=== PATIENT | female | born 1960 | race Caucasian/White ===

== ENCOUNTER 2019-01-01 10:15 | Emergency (ER) | payer BC, OTHER ==
--- OUTSIDE RECORDS SUMMARY | 2019-01-01 10:18 | XMS REPORT | Continuity of Care Document ---
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 Problems Problem Status Onset Date Classification Date Comments Source Reported Medications Medication Details Route Status Patient Ordering Order Source Instructions Provider Date Allergies, Adverse Reactions, Alerts Substance Category Reaction Severity Reaction Status Date Comments Source type Reported Immunizations Immunization Date Given Site Status Last Updated Comments Source Results Order Results Value Reference Date Interpretation Comments Source Name Range Vital Signs Vital Sign Value Date Comments Source Encounters Location Location Encounter Encounter Reason Attending ADM DC Status Source Details Type Number For Provider Date Date Visit Outpatient [id number] [facility] [id number] N[facility]SE [facility]03 Active [facility] [id number] [facility] Procedures Procedure Code Date Perfomer Comments Source
--- OUTSIDE RECORDS SUMMARY | 2019-01-01 10:18 | XMS REPORT ---
:1960 [facility] [address] [place] [address] Dr. Robbins [address] [place] [id number] Care Team Providers Name Role Phone Unavailable Unavailable Unavailable Problems This patient has no known problems. Allergies, Adverse Reactions, Alerts This patient has no known allergies or adverse reactions. Medications This patient has no known medications.
--- OUTSIDE RECORDS SUMMARY | 2019-01-01 10:18 | XMS REPORT | Clinical Summary ---
:1960 Author Organization [facility] Address [address] [place] [address] Care Team Providers Name Role Phone Jevon Leal MD Primary Care Provider Allergies Active Allergy Reactions Severity Noted Date Comments Moxifloxacin 03/06/2016 Ciprofloxacin 03/06/2016 Sulfa (Sulfonamide Antibiotics) 03/06/2016 Medications Medication Sig Dispensed Refills Start End Date Status Date GRALISE 600 mg Take 4 tablets 4 Active tablet extended by mouth once 6 release 24 hr daily. azelastine (OPTIVAR) PUT ONE DROP 12 Active 0.05 % ophthalmic INTO EACH EYE 6 solution TWICE A DAY ONETOUCH ULTRA TEST USE THREE TIMES 3 Active strip test strips DAILY, DX: 6 E11.65 ZETIA 10 mg tablet Take 10 mg by 2 Active mouth once 6 daily. HYDROcodone-acetamin Take 1 tablet 0 Active ophen (NORCO) by mouth 2 6 7.5-325 mg per (two) times a tablet day. HUMALOG KWIKPEN 100 INJECT 20 UNITS 3 Active unit/mL insulin pen UNDER THE SKIN 6 3 (THREE) TIMES DAILY BEFORE MEALS. levothyroxine TAKE 1 TAB BY 1 Active (SYNTHROID, MOUTH EVERY 6 LEVOTHROID) 200 MCG MORNING. tablet nitrofurantoin Take 100 mg by 0 Active (MACRODANTIN) 100 MG mouth. 1 capsule capsule following intercourse METHYLCELLULOSE Take 2 tablets 0 Active (CITRUCEL ORAL) by mouth 2 (two) times a day. IRVING ASPIRIN ORAL Take by mouth. 0 Active DOCOSAHEXANOIC Take by mouth. 0 Active ACID/EPA (FISH OIL ORAL) CRANBERRY FRUIT Take 84 mg by 0 Active EXTRACT (CRANBERRY mouth. Helps ORAL) not to pee as often VITAMIN E ACETATE Take by mouth. 0 Active (VITAMIN E ORAL) CINNAMON Take by mouth. 0 Active EUCI-JHYKFTXJ-GSC ORAL propranolol Take 10 mg by 0 Active (INDERAL) 10 MG mouth 3 (three) tablet times a day. ARIPiprazole Take 5 mg by 0 Active (ABILIFY) 5 MG mouth daily. tablet atorvastatin Take 20 mg by 0 Active (LIPITOR) 20 MG mouth daily. tablet Default OP ins venlafaxine XR Take 150 mg by 0 Active (EFFEXOR-XR) 150 MG mouth daily. 24 hr capsule TAKE WITH 75MG TABLET FOR TOTAL OF 225MG DAILY BYDUREON 2 mg/0.65 INJECT 0.65 ML 1 Active mL pen injector UNDER THE SKIN 8 WEEKLY. valACYclovir Take 500 mg by 0 Active (VALTREX) 500 MG mouth daily. tablet amitriptyline Take 25 mg by 3 Active (ELAVIL) 25 MG mouth nightly. 9 tablet hydrOXYzine (ATARAX) TAKE 1 TABLET 180 tablet 2 10/03/19 Active 25 MG (25 MG TOTAL) 9 20 tabletIndications: BY MOUTH EVERY Itching 4 (FOUR) HOURS NEEDED FOR ITCHING. ursodiol (ACTIGALL) TAKE 3 CAPSULES 450 capsule 0 Active 300 mg capsule BY MOUTH EVERY 9 MORNING AND TAKE 2 CAPSULES BY MOUTH EVERY EVENING gemfibrozil (LOPID) TAKE 1 TAB BY 3 09/01/19 Discontinued 600 MG tablet MOUTH 2 (TWO) 6 19 TIMES DAILY BEFORE BREAKFAST AND DINNER. valACYclovir TK 1 T PO QD 0 04/15/20 Discontinued (VALTREX) 1000 MG FOR 5 D 6 18 tablet venlafaxine Take 75 mg by 0 04/15/20 Discontinued (EFFEXOR) 75 MG mouth daily. 18 tablet For depression GLUCOSAMINE Take by mouth. 0 09/01/19 Discontinued SULF/CHONDROITIN A 19 (FLEX ABILITY ORAL) ursodiol (ACTIGALL) 3 capsules po Q 450 capsule 3 06/15/20 300 mg AM and 2 7 18 capsuleIndications: capsules po Q NAFLD (nonalcoholic PM fatty liver disease), Itching hydrOXYzine (ATARAX) Take 1 tablet 180 tablet 2 06/15/20 25 MG (25 mg total) 7 18 tabletIndications: by mouth every Itching, NAFLD 4 (four) hours (nonalcoholic fatty as needed for liver disease) itching. hydrOXYzine (ATARAX) Take 1 tablet 180 tablet 2 09/27/19 Discontinued 25 MG (25 mg total) 8 19 tabletIndications: by mouth every Itching 4 (four) hours as needed for itching. ursodiol (ACTIGALL) TAKE 3 CAPSULES 450 capsule 0 11/18/19 Discontinued 300 mg capsule BY MOUTH EVERY 9 19 MORNING AND TAKE 2 CAPSULES BY MOUTH EVERY EVENING Active Problems Problem Noted Date Hyperlipidemia 10/21/2016 Ascites 10/21/2016 Primary biliary cholangitis 03/06/2016 NAFLD (nonalcoholic fatty liver disease) 03/06/2016 Cirrhosis of liver without ascites 03/06/2016 Type 2 diabetes mellitus without complication 03/06/2016 Elevated transaminase level 03/06/2016 Encounters Date Type Specialty Care Team Description 11/17/2018 Refill Gastroenterology Nilton Londono MD 09/27/2018 Refill Gastroenterology Nilton Londono Itching 09/01/2018 Office Visit Hepatology Nilton Londono, Cirrhosis of liver without ascites, unspecified hepatic cirrhosis type (HCC) (Primary Dx); Primary biliary cholangitis (HCC); Caty Trinidad, NAFLD (nonalcoholic fatty liver disease); [employer] Hyperlipidemia, unspecified hyperlipidemia type 08/23/2018 Refill Gastroenterology Nilton Londono MD 07/28/2018 Telephone Hepatology Patricia Ann LVN 04/15/2018 Office Visit Hepatology Nilton Londono, Cirrhosis of liver without ascites, unspecified hepatic cirrhosis type (Primary Dx); Primary biliary cholangitis; Neva Michael NAFLD (nonalcoholic fatty liver disease); ABBIE Tejeda Hyperlipidemia, unspecified hyperlipidemia type; Other ascites; Elevated transaminase level; Type 2 diabetes mellitus without complication, unspecified 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; Screening for cancer 03/28/2018 Telephone Hepatology Flor Gusman MA after 12/31/2017 Family History Medical History Relation Name Comments Diabetes Father Heart attack Father Lupus Father Depression Mother Diabetes Mother Lupus Mother Depression Sister Relation Name Status Comments Father Mother Sister Social History Tobacco Use Types Packs/Day Years Used Date Never Smoker Smokeless Tobacco: Never Used Alcohol Use Drinks/Week oz/Week Comments Yes Sex Assigned at Date Recorded Not on file Job Start Date Occupation Industry Not on file Not on file Not on file Travel History Travel Start Travel End No recent travel history available. Last Filed Vital Signs Vital Sign Reading Time Taken Blood Pressure 146/75 09/01/2018 1:17 PM [employer] Pulse 76 09/01/2018 1:17 PM [employer] Temperature 36.5 C (97.7 F) 09/01/2018 1:17 PM [employer] Respiratory Rate 18 04/15/2018 2:58 PM CDT Oxygen Saturation 97% 09/01/2018 1:17 PM [employer] Inhaled Oxygen Concentration - - Weight 113 kg (248 lb 6.4 oz) 09/01/2018 1:17 PM [employer] Height 165.1 cm (5' 5") 09/01/2018 1:17 PM [employer] Body Mass Index 41.34 09/01/2018 1:17 PM [employer] Plan of Treatment Date Type Specialty Care Team Description 01/05/2019 Office Visit Hepatology Nilton Londono MD [address] [place] [address] [phone] Health Maintenance Due Date Last Done Comments DIABETIC RETINAL EYE EXAM 1960 DIABETIC FOOT EXAM 01/16/1972 URINE MICROALBUMIN 01/16/1972 BREAST CANCER SCREENING 01/16/2012 COLON CANCER SCREENING 01/16/2012 SHINGLES VACCINES (#1) 01/16/2012 INFLUENZA VACCINE 03/02/2019 Procedures Procedure Name Priority Date/Time Associated Diagnosis Comments PROTHROMBIN TIME WITH Routine 12/27/2018 4:30 Cirrhosis of liver Results for this INR PM CDT without ascites, procedure are in unspecified hepatic the results cirrhosis type (HCC) section. Primary biliary cholangitis (HCC) NAFLD (nonalcoholic fatty liver disease) Hyperlipidemia, unspecified hyperlipidemia type GGT Routine 12/27/2018 4:30 Cirrhosis of liver Results for this PM CDT without ascites, procedure are in unspecified hepatic the results cirrhosis type (HCC) section. Primary biliary cholangitis (HCC) NAFLD (nonalcoholic fatty liver disease) Hyperlipidemia, unspecified hyperlipidemia type COMPREHENSIVE Routine 12/27/2018 4:30 Cirrhosis of liver Results for this METABOLIC PANEL PM CDT without ascites, procedure are in unspecified hepatic the results cirrhosis type (HCC) section. Primary biliary cholangitis (HCC) NAFLD (nonalcoholic fatty liver disease) Hyperlipidemia, unspecified hyperlipidemia type CBC WITH PLATELET AND Routine 12/27/2018 4:30 Cirrhosis of liver Results for this DIFFERENTIAL PM CDT without ascites, procedure are in unspecified hepatic the results cirrhosis type (HCC) section. Primary biliary cholangitis (HCC) NAFLD (nonalcoholic fatty liver disease) Hyperlipidemia, unspecified hyperlipidemia type HEMOGLOBIN A1C Routine 08/10/2018 2:42 Cirrhosis of liver Results for this PM [employer] without ascites, procedure are in unspecified hepatic the results cirrhosis type (HCC) section. Primary biliary cholangitis (HCC) NAFLD (nonalcoholic fatty liver disease) Hyperlipidemia, unspecified hyperlipidemia type Other ascites Elevated transaminase level Type 2 diabetes mellitus without complication, unspecified residential insulin use status PROTHROMBIN TIME WITH Routine 08/10/2018 2:42 Cirrhosis of liver Results for this INR PM [employer] without ascites, procedure are in unspecified hepatic the results cirrhosis type (HCC) section. Primary biliary cholangitis (HCC) NAFLD (nonalcoholic fatty liver disease) Hyperlipidemia, unspecified hyperlipidemia type Other ascites Elevated transaminase level Type 2 diabetes mellitus without complication, unspecified residential insulin use status GGT Routine 08/10/2018 2:42 Cirrhosis of liver Results for this PM [employer] without ascites, procedure are in unspecified hepatic the results cirrhosis type (HCC) section. Primary biliary cholangitis (HCC) NAFLD (nonalcoholic fatty liver disease) Hyperlipidemia, unspecified hyperlipidemia type Other ascites Elevated transaminase level Type 2 diabetes mellitus without complication, unspecified residential insulin use status COMPREHENSIVE Routine 08/10/2018 2:42 Cirrhosis of liver Results for this METABOLIC PANEL PM [employer] without ascites, procedure are in unspecified hepatic the results cirrhosis type (HCC) section. 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 Primary biliary cholangitis (HCC) NAFLD (nonalcoholic fatty liver disease) Hyperlipidemia, unspecified hyperlipidemia type Other ascites Elevated transaminase level Type 2 diabetes mellitus without complication, unspecified 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 ALPHA FETOPROTEIN Routine 08/10/2018 2:42 Cirrhosis of liver Results for this PM [employer] without ascites, procedure are in unspecified hepatic the results cirrhosis type (HCC) section. Primary biliary cholangitis (HCC) NAFLD (nonalcoholic fatty liver disease) Hyperlipidemia, unspecified hyperlipidemia type Other ascites Elevated transaminase level Type 2 diabetes mellitus without complication, unspecified residential insulin use status PERSONAL FACTORS Routine 03/22/2018 4:27 Results for this PM CDT procedure are in the results section. ALBUMIN LEVEL Routine 03/22/2018 4:27 Results for this PM CDT procedure are in the results section. PLATELET COUNT Routine 03/22/2018 4:27 Results for this PM CDT procedure are in the results section. ALT (SGPT) Routine 03/22/2018 4:27 Results for this PM CDT procedure are in the results section. AST (SGOT) Routine 03/22/2018 4:27 Results for this PM CDT procedure are in the results section. GLUCOSE LEVEL Routine 03/22/2018 4:27 Results for this PM CDT procedure are in the results section. INTERPRETATION (REFLEX Routine 03/22/2018 4:27 Results for this [facility]) PM CDT procedure are in the results section. NAFLD FIBROSIS SCORE Routine 03/22/2018 4:27 Results for this (REFLEX) PM CDT procedure are in the results section. IMMUNOGLOBULIN G, A, M Routine 03/22/2018 4:27 Primary biliary Results for this PM CDT cholangitis procedure are in Cirrhosis of liver the results without ascites, section. unspecified hepatic cirrhosis type Type 2 diabetes mellitus without complication, unspecified 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 Overweight GGT Routine 03/22/2018 4:27 Primary biliary Results for this PM CDT cholangitis procedure are in Cirrhosis of liver the results without ascites, section. unspecified hepatic cirrhosis type Type 2 diabetes mellitus without complication, unspecified 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 Overweight PROTHROMBIN TIME WITH Routine 03/22/2018 4:27 Primary biliary Results for this INR PM CDT cholangitis procedure are in Cirrhosis of liver the results without ascites, section. unspecified hepatic cirrhosis type Type 2 diabetes mellitus without complication, unspecified residential insulin use status Overweight COMPREHENSIVE Routine 03/22/2018 4:27 Primary biliary Results for this METABOLIC PANEL PM CDT cholangitis procedure are in Cirrhosis of liver the results without ascites, section. unspecified hepatic cirrhosis type Type 2 diabetes mellitus without complication, unspecified residential insulin use status Overweight CBC WITH PLATELET AND Routine 03/22/2018 4:27 Primary biliary Results for this DIFFERENTIAL PM CDT cholangitis procedure are in Cirrhosis of liver the results without ascites, section. unspecified hepatic cirrhosis type Type 2 diabetes mellitus without complication, unspecified residential insulin use status Overweight after 12/31/2017 Results Prothrombin time with INR (12/27/2018 4:30 PM CDT)Only the most recent of3 resultswithin the time period is included. Pathologist [facility] INR 0.9 [employer] Comment: [place] Reference Range 0.9-1.1 Moderate-intensity Warfarin Therapy 2.0-3.0 Higher-intensity Warfarin Therapy 3.0-4.0 Prothrombin time 9.9 9.0 - 11.5 [facility] Comment: birgit CARTER For more information on this test, go to: http://education.LoopPay/faq/MZO669 Specimen Blood Narrative Performed At FASTING:NO [facility] FASTING: NO Resulting Agency Comment Performing Organization Information: Site ID: [id number] Name: [facility] Address: [address] [place] [phone] Director: Alyse Masterson Performing Organization Address City/State/Zipcode Phone Number [employer] [place] [phone] CBC with platelet and differential (12/27/2018 4:30 PM CDT)Only the most recent of3 resultswithin the time period is included. [facility] WBC 6.1 3.8 - 10.8 [facility] Thousand/uL [place] RBC 4.89 3.80 - 5.10 [facility] Million/uL [place] HGB 14.4 11.7 - 15.5 [facility] g/dL [place] HCT 42.4 35.0 - 45.0 % [employer] [place] MCV 86.7 80.0 - 100.0 fL [facility] [place] MCH 29.4 27.0 - 33.0 pg [facility] [place] MCHC 34.0 32.0 - 36.0 [facility] g/dL [place] RDW 13.1 11.0 - 15.0 % [employer] [place] Platelet count 212 140 - 400 [facility] Thousand/uL [place] MPV 11.5 7.5 - 12.5 fL [facility] [place] Neutrophils, absolute 3,941 1,500 - 7,800 [facility] cells/uL [place] Lymphocytes, absolute 1,464 850 - 3,900 [facility] cells/uL [place] Monocytes, absolute 403 200 - 950 [facility] cells/uL [place] Eosinophils, absolute 214 15 - 500 [facility] cells/uL [place] Basophils, absolute 79 0 - 200 [facility] cells/uL [place] Neutrophils 64.6 % [facility] [place] Lymphocytes 24.0 % [facility] Monocytes 6.6 % [facility] Eosinophils 3.5 % [facility] [place] Basophils + RC 1.3 % [facility] [place] Specimen Blood Narrative Performed At FASTING:NO [facility] FASTING: NO Resulting Agency Comment Performing Organization Information: Site ID: [id number] Name: [facility] Address: [address] [place] [phone] Director: Alyse Masterson Performing Organization Address City/State/[facility] Hospital[facility] Phone Number [facility] [place] [address] GGT (12/27/2018 4:30 PM CDT)Only the most recent of3 resultswithin the time period is included. GGT 118 (H) 3 - 70 U/L [employer] [place] Specimen Blood Narrative Performed At FASTING:NO [facility] FASTING: NO Resulting Agency Comment Performing Organization Information: Site ID: [email or web address] Name: [facility] Address: [address] [place] [phone] Director: Alyse Masterson Performing Organization Address City/[facility] Phone Number [employer] [place] [address] Comprehensive metabolic panel (12/27/2018 4:30 PM CDT)Only the most recent of3 resultswithin the time period is included. Glucose 143 (H) 65 - 139 [facility] Comment: mg/dL [place] Non-fasting reference interval BUN, whole blood 12 7 - 25 mg/dL [employer] [place] Creatinine 0.68 0.50 - 1.05 [facility] Comment: mg/dL [place] For patients >49 years of age, the reference limit for Creatinine is approximately 13% higher for people identified as -Nigerian. EGFR Non-Afr. 98 > OR=60 [facility] Nigerian mL/min/1.73m [place] 2 EGFR 113 > OR=60 [facility] [place] mL/min/1.73m [place] 2 BUN/creatinine NOT APPLICABLE 6 - 22 [facility] ratio (calc) [place] Sodium 138 135 - 146 [facility] mmol/L [place] Potassium 4.6 3.5 - 5.3 [facility] mmol/L [place] Chloride 102 98 - 110 [facility] mmol/L [place] CO2 27 20 - 32 [facility] mmol/L [place] Calcium 9.8 8.6 - 10.4 [facility] mg/dL [place] Protein 7.3 6.1 - 8.1 [facility] g/dL [place] Albumin, S 4.4 3.6 - 5.1 [facility] g/dL [place] Globulin, total 2.9 1.9 - 3.7 [facility] g/dL (calc) [place] Albumin/globulin 1.5 1.0 - 2.5 [facility] ratio (calc) [place] Total bilirubin 0.5 0.2 - 1.2 [facility] mg/dL [place] Alkaline 174 (H) 33 - 130 U/L [facility] phosphatase [place] AST 21 10 - 35 U/L [facility] [place] ALT 23 6 - 29 U/L [facility] [place] Specimen Blood Narrative Performed At FASTING:NO [facility] FASTING: NO Resulting Agency Comment Performing Organization Information: Site ID: [id number] Name: [facility] Address: [address] [place] [phone] Director: Alyse Masterson Performing Organization Address City/[facility]/Zipcode Phone Number [employer] [address] [address] Alpha fetoprotein (08/10/2018 2:42 PM [employer]) Alpha fetoprotein 2.7 ng/mL [facility] Comment: DIAGNOSTICS-IR Reference Range: <6.1 NG II The use of AFP as a tumor marker in females is not recommended. This test was performed using the Jabari Brockton chemiluminescent method. Values obtained from different assay methods cannot be used interchangeably. AFP levels, regardless of value, should not be interpreted as absolute evidence of the presence or absence of disease. Specimen Blood Narrative Performed At FASTING:YES [facility] FASTING: YES Resulting Agency Comment Performing Organization Information: Site ID: [id number] Name: [facility] Address: [address] [place] [phone] Director: Dr. Javi Zimmerman Performing Organization Address City/[facility]/Zipcode Phone Number [facility] [employer] [address] Hemoglobin A1c (08/10/2018 2:42 PM [employer]) Hemoglobin A1C 7.0 (H) <5.7 % of [facility] Comment: total Hgb [place] For someone without known diabetes, a hemoglobin A1c value of 6.5% or greater indicates that they may have diabetes and this should be confirmed with a follow-up test. For someone with known diabetes, a value <7% indicates that their diabetes is well controlled and a value greater than or equal to 7% indicates suboptimal control. A1c targets should be individualized based on duration of diabetes, age, comorbid conditions, and other considerations. Currently, no consensus exists regarding use of hemoglobin A1c for diagnosis of diabetes for children. Specimen Blood Narrative Performed At FASTING:YES [employer] FASTING: YES Resulting Agency Comment Performing Organization Information: Site ID: [id number] Name: [facility] Address: [address] [place] [phone] Director: Alyse Masterson Performing Organization Address City/[facility] Phone Number [facility] [employer] [place] [phone] PERSONAL FACTORS (03/22/2018 4:27 PM CDT) Height feet 5 ft [employer] [place] Height inches NOT GIVEN in [employer] [facility] Weight 242 lbs [employer] [place] Calculated BMI 47.3 [employer] [place] Diabetic YES [facility] [employer] [place] Specimen Narrative Performed At FASTING:YES [employer] FASTING: YES Resulting Agency Comment Performing Organization Information: Site ID: [id number] Name: [facility] Address: [address] [place] [phone] Director: Alyse Masterson Performing Organization Address [facility] Phone Number [facility] [place] [address] INTERPRETATION (03/22/2018 4:27 PM CDT) Interpretation [facility] [employer] Comment: [place] NAFLD Fibrosis Score greater than 0.676: Presence of significant fibrosis (90% certainty). Reference: Hans P, Amy ARANGO, Karen G, Maria Elena E, Nando J, Catrachito GC, Hayden F, Saksentaylor S, Anuj DA, et al. The NAFLD fibrosis score: a noninvasive system that identifies liver fibrosis in patients with NAFLD. HEPATOLOGY 2007;45:846-854. If fasting conditions were not met, use caution when interpreting the glucose test result and the NAFLD Fibrosis Score. Specimen Narrative Performed At FASTING:YES [facility] FASTING: YES Resulting Agency Comment Performing Organization Information: Site ID: [id number] Name: [facility] Address: [address] [place] [address] Director: Alyse Masterson Performing Organization Address [facility] Phone Number [employer] [place] [address] NAFLD FIBROSIS SCORE (REFLEX) (03/22/2018 4:27 PM CDT) NAFLD fibrosis score 1.291 [facility] [employer] [place] Specimen Narrative Performed At FASTING:YES [facility] FASTING: YES Resulting Agency Comment Performing Organization Information: Site ID: [id number] Name: [facility] Address: [address] [place], [place] [id number] Director: Alyse Masterson Performing Organization Address [facility] Phone Number [employer] [place] [address] Platelet count (03/22/2018 4:27 PM CDT) Platelet count 216 140 - 400 [facility] [employer] Thousand/uL CARTER Specimen Narrative Performed At FASTING:YES [facility] FASTING: YES Resulting Agency Comment Performing Organization Information: Site ID: [id number] Name: [facility] Address: [address] [place] [address] Director: Alyse Masterson Performing Organization Address [facility] Phone Number [employer] [place] [address] Immunoglobulin G, A, M (03/22/2018 4:27 PM CDT) IgA 239 81 - 463 mg/dL [facility] IgG 974 694 - 1,618 mg/dL [employer] [place] IgM 144 48 - 271 mg/dL [employer] [place] Specimen Blood Narrative Performed At FASTING:YES [facility] FASTING: YES Resulting Agency Comment Performing Organization Information: Site ID: [id number] Name: [facility] Address: [address] [place], [place] [phone] Director: Alyse Masterson Performing Organization Address [facility] Phone Number [employer] [place] [phone] ALT (SGPT) (03/22/2018 4:27 PM CDT) [facility] ALT 25 6 - 29 U/L [employer] [place] Specimen Narrative Performed At FASTING:YES [facility]ST FASTING: YES Resulting Agency Comment Performing Organization Information: Site ID: [id number] Name: [facility] Address: [address] [place] [address] Director: Alyse Masterson Performing Organization Address [facility] Phone Number [employer] [place] [address] AST (SGOT) (03/22/2018 4:27 PM CDT) [facility] AST 21 10 - 35 U/L [employer] [place] Specimen Narrative Performed At FASTING:YES [facility]ST FASTING: YES Resulting Agency Comment Performing Organization Information: Site ID: [facility] Name: [facility] Address: [address] [place] [phone] Director: Alyse Masterson Performing Organization Address [facility] Number [employer] [place] [address] Glucose level (03/22/2018 4:27 PM CDT) [facility] Glucose 105 (H) 65 - 99 mg/dL [employer] [facility] Comment: [place] Fasting reference interval For someone without known diabetes, a glucose value between 100 and 125 mg/dL is consistent with prediabetes and should be confirmed with a follow-up test. Specimen Narrative Performed At FASTING:YES [facility]ST FASTING: YES Resulting Agency Comment Performing Organization Information: Site ID: [id number] Name: [facility] Address: [address] [place] [phone] Director: Alyse Masterson Performing Organization Address [facility] Phone Number [employer] [place] [address] Albumin level (03/22/2018 4:27 PM CDT) [facility] Albumin, S 4.1 3.6 - 5.1 g/dL [employer] [place] Specimen Narrative Performed At FASTING:YES [facility]ST FASTING: YES Resulting Agency Comment Performing Organization Information: Site ID: [id number] Name: [facility] Address: [address] [place] [address] Director: Alyse Masterson Performing Organization Address City/State/Zipcode Phone Number NEIL HOLGUIN [place] [address] [place] [address] after 12/31/2017 Advance Directives Patient has advance care planning documents on file. For more information, please contact:Santy Shahid[address] [place] [address]
[2019-01-01 11:45] LABS: Urine Bacteria 20-50 /HPF (<20); Urine Culture Reflex Order NOT NEEDED; Urine RBC <5 /HPF (NONE SEEN)
[2019-01-01 11:48] LABS: Urine Blood NEGATIVE (NEG); Urine Glucose NEGATIVE (NEG); Urine Protein TRACE (NEG); Urine Specific Gravity >1.030 (1.005-1.030)
--- NOTE | 2019-01-01 12:22 | ER ---
Nurse's Notes [facility] Name: Kylee Sandhu Age: 58 yrs Sex: Female : 1960 Arrival Date: 01/01/2019 Time: 10:17 Bed 8 Private MD: Jorge Luis Wall Diagnosis: Low back pain;Cystitis;Type 1 diabetes mellitus Presentation: 01/01 10:25 Presenting complaint: Patient states: R LUMBAR PAIN WITH DYSURIA x5 DAYS. Transition of bp care: patient was not received from another setting of care. Onset of symptoms is unknown. Risk Assessment: Do you want to hurt yourself or someone else? Patient reports no desire to harm self or others. Initial Sepsis Screen: Does the patient meet any 2 criteria? No. Patient's initial sepsis screen is negative. Does the patient have a suspected source of infection? No. Patient's initial sepsis screen is negative. Care prior to arrival: None. 10:25 Method Of Arrival: Ambulatory bp 10:25 Acuity: HELLEN 3 bp Historical: - Allergies: 10:29 AVALOX; bp 10:29 Cipro; bp 10:29 Sulfa (Sulfonamide Antibiotics); bp - PMHx: 10:29 Arthritis; Cirrhosis; Diabetes - IDDM; Hernia; HERPES; Hyperlipidemia; Hypothyroidism; bp PRIMARY BILIARY CIRRHOSIS; Sleep Apnea; - Immunization history:: Adult Immunizations up to date. - Social history:: Smoking status: unknown. - Ebola Screening: : No symptoms or risks identified at this time. - Family history:: not pertinent. Screenin:15 Abuse screen: Denies threats or abuse. Denies injuries from another. Nutritional sv screening: No deficits noted. Tuberculosis screening: No symptoms or risk factors identified. Fall Risk None identified. Assessment: 11:15 General: Appears in no apparent distress. uncomfortable, obese, well developed, sv Behavior is calm, cooperative, appropriate for age. Pain: Complains of pain in right low back Pain currently is 5 out of 10 on a pain scale. Pain began 5 days ago. Neuro: Level of Consciousness is awake, alert, obeys commands, Oriented to person, place, time, situation, Moves all extremities. Full function. Respiratory: Respiratory effort is even, unlabored, Respiratory pattern is regular, symmetrical. : Reports burning with urination, pain in right in lower back with urination, urinary frequency. Derm: Skin is pink, warm \T\ dry. 12:32 Reassessment: Patient appears in no apparent distress at this time. No changes from sv previously documented assessment. Patient and/or family updated on plan of care and expected duration. Pain level reassessed. Patient is alert, oriented x 3, equal unlabored respirations, skin warm/dry/pink. Vital Signs: 10:25 BP 139 / 79; Pulse 72; Resp 17; Temp 98; Pulse Ox 95% ; Weight 113.4 kg; Height 5 ft. 0 bp in. (152.40 cm); 12:00 BP 119 / 69; Pulse 67; Resp 18; Pulse Ox 97% ; sv 10:25 Body Mass Index 48.82 (113.40 kg, 152.40 cm) bp ED Course: 10:17 Patient arrived in ED. ag5 10:18 Jorge Luis Wall DO is Private Physician. ag5 10:25 Triage completed. bp 10:26 Arm band placed on. bp 10:27 Indra Marshall MD is Attending Physician. anna 10:47 Urine collected: clean catch specimen, clear. kj1 11:00 Lumbar Spine (3 Views) XRAY In Process Unspecified. EDMS 11:15 Patient has correct armband on for positive identification. Placed in gown. Bed in low sv position. Adult w/ patient. 11:18 Beata Geiger, RN is Primary Nurse. sv 12:21 Jorge Luis Wall DO is Referral Physician. anna 12:32 No provider procedures requiring assistance completed. Patient did not have IV access sv during this emergency room visit. Administered Medications: 12:31 Drug: [place] 10 mg-325 mg 1 tabs Route: PO; sv 12:32 Follow up: Response: Medication administered at discharge. sv 12:32 Drug: Augmentin 875 mg Route: PO; sv 12:32 Follow up: Response: Medication administered at discharge. sv Outcome: 12:21 Discharge ordered by . anna 12:32 Patient left the ED. sv 12:32 Discharged to home ambulatory, with family. sv 12:32 Condition: stable 12:32 Discharge instructions given to patient, Instructed on discharge instructions, follow up and referral plans. medication usage, Demonstrated understanding of instructions, follow-up care, medications, Prescriptions given X 3. Addendum: 01/04/2019 08:21 Addendum: Culture Results: Positive urine culture. Bacteria is resistant to, has i w intermediate sensitivity, or is not tested against prescribed antibiotics. Report given to RHONDA for further evaluation and then to local coordinator for follow up with patient. 08:49 Addendum: Culture Results: No further action required. Bacteria sensitive to prescribed i w antibiotic. Signatures: Dispatcher [employer] Beata Vogel RN RN sv Anderson, Corey, MD MD cha Williams, Irene, RN RN iw Peltier, Brian, RN RN bp [place], Ajare [facility] Debbie Jacinto kj1
--- NOTE | 2019-01-01 12:22 | RAD REPORT ---
EXAM DESCRIPTION: RAD - Lumbar Spine 3 Views - 01/01/2019 11:02 am CLINICAL HISTORY: Back pain FINDINGS: The alignment of the lumbar spine is satisfactory. No fracture or dislocation is seen. Osteoporosis Minimal spondylosis involves the lumbar spine
--- NOTE | 2019-01-01 12:22 | EDPHYS ---
Physician Documentation [facility] Name: Kylee Sandhu Age: 58 yrs Sex: Female : 1960 Arrival Date: 01/01/2019 Time: 10:17 Bed 8 Private MD: Jorge Luis Wall ED Physician Indra Marshall HPI: 01/01 12:11 This 58 yrs old Female presents to ER via Ambulatory with complaints of Low anna Back Pain. 12:11 The patient presents with pain that is acute, with no known mechanism of injury. The anna symptoms are located in the low back, L4 and L5. The pain does not radiate. The problem was sustained from unknown cause. Onset: The symptoms/episode began/occurred 2 day(s) ago. Modifying factors: The patient symptoms are alleviated by nothing, the patient symptoms are aggravated by any movement, bending. Associated signs and symptoms: Pertinent positives: dysuria. Historical: - Allergies: 10:29 AVALOX; bp 10:29 Cipro; bp 10:29 Sulfa (Sulfonamide Antibiotics); bp - PMHx: 10:29 Arthritis; Cirrhosis; Diabetes - IDDM; Hernia; HERPES; Hyperlipidemia; Hypothyroidism; bp PRIMARY BILIARY CIRRHOSIS; Sleep Apnea; - Immunization history:: Adult Immunizations up to date. - Social history:: Smoking status: unknown. - Ebola Screening: : No symptoms or risks identified at this time. - Family history:: not pertinent. ROS: 12:11 Constitutional: Negative for fever, chills, and weight loss, Eyes: Negative for injury, anna pain, redness, and discharge, ENT: Negative for injury, pain, and discharge, Neck: Negative for injury, pain, and swelling, Cardiovascular: Negative for chest pain, palpitations, and edema, Respiratory: Negative for shortness of breath, cough, wheezing, and pleuritic chest pain, Abdomen/GI: Negative for abdominal pain, nausea, vomiting, diarrhea, and constipation, MS/Extremity: Negative for injury and deformity, Skin: Negative for injury, rash, and discoloration, Neuro: Negative for headache, weakness, numbness, tingling, and seizure, Psych: Negative for depression, anxiety, suicide ideation, homicidal ideation, and hallucinations, Allergy/Immunology: Negative for hives, rash, and allergies, Endocrine: Negative for neck swelling, polydipsia, polyuria, polyphagia, and marked weight changes, Hematologic/Lymphatic: Negative for swollen nodes, abnormal bleeding, and unusual bruising. 12:11 Back: Positive for decreased range of motion, pain at rest, pain with movement. 12:11 : Positive for urinary symptoms, urinary frequency, small amounts, burning with urination, difficulty urinating. Exam: 12:11 Constitutional: This is a well developed, well nourished patient who is awake, alert, anna and in no acute distress. Head/Face: Normocephalic, atraumatic. Eyes: Pupils equal round and reactive to light, extra-ocular motions intact. Lids and lashes normal. Conjunctiva and sclera are non-icteric and not injected. Cornea within normal limits. Periorbital areas with no swelling, redness, or edema. ENT: Nares patent. No nasal discharge, no septal abnormalities noted. Tympanic membranes are normal and external auditory canals are clear. Oropharynx with no redness, swelling, or masses, exudates, or evidence of obstruction, uvula midline. Mucous membranes moist. Neck: Trachea midline, no thyromegaly or masses palpated, and no cervical lymphadenopathy. Supple, full range of motion without nuchal rigidity, or vertebral point tenderness. No Meningismus. Chest/axilla: Normal chest wall appearance and motion. Nontender with no deformity. No lesions are appreciated. Cardiovascular: Regular rate and rhythm with a normal S1 and S2. No gallops, murmurs, or rubs. Normal PMI, no JVD. No pulse deficits. Respiratory: Lungs have equal breath sounds bilaterally, clear to auscultation and percussion. No rales, rhonchi or wheezes noted. No increased work of breathing, no retractions or nasal flaring. Abdomen/GI: Soft, non-tender, with normal bowel sounds. No distension or tympany. No guarding or rebound. No evidence of tenderness throughout. Female : Normal external genitalia. Skin: Warm, dry with normal turgor. Normal color with no rashes, no lesions, and no evidence of cellulitis. MS/ Extremity: Pulses equal, no cyanosis. Neurovascular intact. Full, normal range of motion. Neuro: Awake and alert, GCS 15, oriented to person, place, time, and situation. Cranial nerves II-XII grossly intact. Motor strength 5/5 in all extremities. Sensory grossly intact. Cerebellar exam normal. Normal gait. Psych: Awake, alert, with orientation to person, place and time. Behavior, mood, and affect are within normal limits. 12:11 Back: pain, that is mild, ROM is painful, normal spinal alignment noted, CVA tenderness, is absent, vertebral tenderness, is not appreciated, muscle spasm, is not present, Straight leg raises: of both lower extremities does not illicit pain. Vital Signs: 10:25 BP 139 / 79; Pulse 72; Resp 17; Temp 98; Pulse Ox 95% ; Weight 113.4 kg; Height 5 ft. 0 bp in. (152.40 cm); 12:00 BP 119 / 69; Pulse 67; Resp 18; Pulse Ox 97% ; sv 10:25 Body Mass Index 48.82 (113.40 kg, 152.40 cm) bp MDM: 10:27 Patient medically screened. [facility] 12:11 Data reviewed: vital signs, nurses notes, lab test result(s), radiologic studies, plain [facility] films. 01/01 10:28 Order name: Urine Culture [facility] 01/01 11:03 Order name: Urine Dipstick--Ancillary (enter results); Complete Time: 12:08 01/01 10:28 Order name: Lumbar Spine (3 Views) XRAY [facility] 01/01 11:22 Order name: Urine Microscopic Only; Complete Time: 12:08 01/01 10:28 Order name: Urine Dipstick-Ancillary (obtain specimen); Complete Time: 11:17 [facility] Administered Medications: 12:31 Drug: [place] 10 mg-325 mg 1 tabs Route: PO; sv 12:32 Follow up: Response: Medication administered at discharge. sv 12:32 Drug: Augmentin 875 mg Route: PO; sv 12:32 Follow up: Response: Medication administered at discharge. sv Disposition: 01/01/19 12:21 Discharged to Home. Impression: Low back pain, Cystitis, Type 1 diabetes mellitus. - Condition is Stable. - Discharge Instructions: Back Pain, Adult, Chronic Back Pain, Dysuria, Musculoskeletal Pain, Urinary Tract Infection, Adult, Back Injury Prevention, [id number], Urinary Tract Infection, Adult, Rchp-oq-Opir, Back Pain, Adult, [id number]-[id number]. - Prescriptions for Augmentin 875- 125 mg Oral Tablet - take 1 tablet by ORAL route every 12 hours for 7 days; 14 tablet. Tylenol- Codeine #3 300-30 mg Oral Tablet - take 2 tablet by ORAL route every 6 hours As needed; 30 tablet. Valium 5 mg Oral Tablet - take 1 tablet by ORAL route every 8 hours As needed; 15 tablet. - Medication Reconciliation Form, Thank You Letter, Antibiotic Education, Prescription Opioid Use form. - Follow up: Jorge Luis Wall DO; When: 2 - 3 days; Reason: Recheck today's complaints, Continuance of care, Re-evaluation by your physician. - Problem is new. - Symptoms have improved. Signatures: Dispatcher [employer] Beata Vogel RN RN Indra Church MD MD cha Peltier, Brian RN RN bp Corrections: (The following items were deleted from the chart) 12:22 12:21 01/01/2019 12:21 Discharged to Home. Impression: Low back pain; Cystitis. anna Condition is Stable. Forms are Medication Reconciliation Form, Thank You Letter, Antibiotic Education, Prescription Opioid Use. Follow up: Jorge Luis Wall; When: 2 - 3 days; Reason: Recheck today's complaints, Continuance of care, Re-evaluation by your physician. Problem is new. Symptoms have improved. [facility] 12:32 12:22 01/01/2019 12:21 Discharged to Home. Impression: Low back pain; Cystitis; Type 1 sv diabetes mellitus. Condition is Stable. Forms are Medication Reconciliation Form, Thank You Letter, Antibiotic Education, Prescription Opioid Use. Follow up: Jorge Luis Wall; When: 2 - 3 days; Reason: Recheck today's complaints, Continuance of care, Re-evaluation by your physician. Problem is new. Symptoms have improved. anna
[2019-01-01] MEDS ORDERED: AMOX/K CLAV 875 MG TAB ONE (12:42)
[2019-01-01] MEDS ORDERED: HYDROCODONE/APAP 10/325 TAB ONE (12:42)
== END 2019-01-01 12:32 | disposition home or self-care (01) ==
LOC: ER 10:15
DX: M54.5 Low back pain (principal); N30.90 Cystitis, unspecified without hematuria; E10.9 Type 1 diabetes mellitus without complications; E78.5 Hyperlipidemia, unspecified; E03.9 Hypothyroidism, unspecified; K74.60 Unspecified cirrhosis of liver; Z88.1 Allergy status to other antibiotic agents; Z88.2 Allergy status to sulfonamides; Z79.4 Long term (current) use of insulin
CPT/HCPCS: 72100; 81003; 81015; 87077; 87086; 87088; 87186; 99284

== ENCOUNTER 2019-08-26 16:34 | Emergency (ER) | payer BC, OTHER ==
--- OUTSIDE RECORDS SUMMARY | 2019-08-26 16:36 | XMS REPORT ---
:1960 [facility] Address [address] [place] [address] Dr. Robbins [address] [place] [id number] Care Team Providers Name Role Phone Unavailable Unavailable Unavailable Problems This patient has no known problems. Allergies, Adverse Reactions, Alerts This patient has no known allergies or adverse reactions. Medications This patient has no known medications. Encounters Start End Encounter Admission Attending Care Care Encounter Date/Time Date/Time Type Type Clinicians Facility Department ID 2019-01-12 Outpatient [id number] 08:20:44
[2019-08-26] MEDS ORDERED: TETANUS & DIPHTHERIA TOX,ADULT 0.5 ML VIAL ONE (17:49)
[2019-08-26] MEDS ORDERED: HYDROCODONE/APAP 5/325 MG TAB ONE (17:49)
--- NOTE | 2019-08-26 18:06 | EDPHYS ---
Physician Documentation [facility] Name: Kylee Sandhu Age: 59 yrs Sex: Female : 1960 Arrival Date: 08/26/2019 Time: 16:37 Bed 17 Private MD: ED Physician Ralf Carrillo HPI: 08/26 18:51 This 59 yrs old Female presents to ER via Ambulatory with complaints of Fall snw Injury, Foot Pain, Knee Pain. 18:51 Details of fall: The patient fell from an upright position, while walking. Onset: The snw symptoms/episode began/occurred suddenly, just prior to arrival. Associated injuries: The patient sustained right knee and right foot. Severity of symptoms: At their worst the symptoms were mild, in the emergency department the symptoms are unchanged. The patient has not experienced similar symptoms in the past. The patient has not recently seen a physician. Historical: - Allergies: 16:52 AVALOX; hb 16:52 Cipro; hb 16:52 Sulfa (Sulfonamide Antibiotics); hb - PMHx: 16:52 Diabetes - IDDM; Arthritis; Hyperlipidemia; Hypothyroidism; PRIMARY BILIARY CIRRHOSIS; hb HERPES; Hernia; Sleep Apnea; Cirrhosis; - Immunization history:: Adult Immunizations up to date. - Coronavirus screen:: The patient has NOT traveled to [place], [place], or [place] in the past 14 days. The patient has NOT had contact with known/suspected case of Coronavirus? Proceed with normal triage procedures. - Social history:: Smoking status: Patient denies any tobacco usage or history of. - Ebola Screening: : No symptoms or risks identified at this time. ROS: 18:44 Constitutional: Negative for fever, chills, and weight loss, Eyes: Negative for injury, snw pain, redness, and discharge, ENT: Negative for injury, pain, and discharge, Neck: Negative for injury, pain, and swelling, Cardiovascular: Negative for chest pain, palpitations, and edema, Respiratory: Negative for shortness of breath, cough, wheezing, and pleuritic chest pain, Abdomen/GI: Negative for abdominal pain, nausea, vomiting, diarrhea, and constipation, Back: Negative for injury and pain, : Negative for injury, bleeding, discharge, and swelling, Skin: Negative for injury, rash, and discoloration, Neuro: Negative for headache, weakness, numbness, tingling, and seizure. 18:44 MS/extremity: Positive for injury or acute deformity, contusion, swelling, tenderness, of the right knee and right foot. Exam: 18:38 Constitutional: This is a well developed, well nourished patient who is awake, alert, snw and in no acute distress. Head/Face: Normocephalic, atraumatic. Eyes: Pupils equal round and reactive to light, extra-ocular motions intact. Lids and lashes normal. Conjunctiva and sclera are non-icteric and not injected. Cornea within normal limits. Periorbital areas with no swelling, redness, or edema. ENT: Nares patent. No nasal discharge, no septal abnormalities noted. Tympanic membranes are normal and external auditory canals are clear. Oropharynx with no redness, swelling, or masses, exudates, or evidence of obstruction, uvula midline. Mucous membranes moist. Neck: Trachea midline, no thyromegaly or masses palpated, and no cervical lymphadenopathy. Supple, full range of motion without nuchal rigidity, or vertebral point tenderness. No Meningismus. Chest/axilla: Normal chest wall appearance and motion. Nontender with no deformity. No lesions are appreciated. Cardiovascular: Regular rate and rhythm with a normal S1 and S2. No gallops, murmurs, or rubs. Normal PMI, no JVD. No pulse deficits. Respiratory: Lungs have equal breath sounds bilaterally, clear to auscultation and percussion. No rales, rhonchi or wheezes noted. No increased work of breathing, no retractions or nasal flaring. Abdomen/GI: Soft, non-tender, with normal bowel sounds. No distension or tympany. No guarding or rebound. No evidence of tenderness throughout. Back: No spinal tenderness. No costovertebral tenderness. Full range of motion. Skin: Warm, dry with normal turgor. Normal color with no rashes, no lesions, and no evidence of cellulitis. Neuro: Awake and alert, GCS 15, oriented to person, place, time, and situation. Cranial nerves II-XII grossly intact. Motor strength 5/5 in all extremities. Sensory grossly intact. Cerebellar exam normal. Normal gait. Psych: Awake, alert, with orientation to person, place and time. Behavior, mood, and affect are within normal limits. 18:38 Musculoskeletal/extremity: Extremities: noted in the dorsum of right foot: abrasion, contusion, tenderness, noted in the right knee: abrasion, ROM: no acute changes, Circulation is intact in all extremities. Sensation intact. Vital Signs: 16:51 BP 152 / 62; Pulse 65; Resp 20; Temp 97.3; Pulse Ox 97% on R/A; Weight 113.4 kg; Height hb 5 ft. (152.40 cm); Pain 10/10; 17:50 BP 164 / 70; Pulse 65; Resp 19; Pulse Ox 97% on R/A; rb1 18:42 BP 144 / 57; Pulse 63; Resp 20; Pulse Ox 98% on R/A; Pain 10/10; rb1 16:51 Body Mass Index 48.82 (113.40 kg, 152.40 cm) hb MDM: 17:14 Patient medically screened. snw 18:43 Data reviewed: vital signs, nurses notes. Data interpreted: Pulse oximetry: on room air snw is 97 %. Interpretation: normal. Counseling: I had a detailed discussion with the patient and/or guardian regarding: the historical points, exam findings, and any diagnostic results supporting the discharge/admit diagnosis, the presence of at least one elevated blood pressure reading (>120/80) during this emergency department visit, radiology results, the need for outpatient follow up, to return to the emergency department if symptoms worsen or persist or if there are any questions or concerns that arise at home. Response to treatment: the patient's symptoms have mildly improved after treatment. Special discussion: I have referred the patient to see his PCP for further evaluation of high blood pressure. Based on the history and exam findings, there is no indication for further emergent testing or inpatient evaluation. I discussed with the patient/guardian the need to see the orthopedic surgeon for further evaluation of the symptoms. 08/26 17:11 Order name: Foot Right 3 View XRAY snw 08/26 17:11 Order name: Ankle Right 3 View XRAY snw 08/26 18:06 Order name: Aircast Ankle Splint; Complete Time: 18:38 snw Administered Medications: 17:55 Drug: [place] 5 mg-325 mg 1 tabs Route: PO; rb1 18:38 Follow up: Response: No adverse reaction; Pain is decreased; RASS: Alert and Calm (0) wh 17:55 Drug: Tetanus-Diphtheria Toxoid Adult 0.5 ml {Public Address System Installer: [place]. Exp: rb1 08/17/2021. Lot #: [id number]. } Route: IM; Site: left deltoid; 18:38 Follow up: Response: No adverse reaction Disposition: 08/26/19 18:05 Discharged to Home. Impression: Unspecified sprain of right foot, Slipping, tripping and stumbling without falling due to stepping from one level to another. - Condition is Stable. - Discharge Instructions: Cast or Splint Care, Adult, Foot Sprain, RICE for Routine Care of Injuries, VIS, Tetanus, Diphtheria (Td) - [facility]. - Prescriptions for Diclofenac Sodium 75 mg Oral Tablet Sustained Release - take 1 tablet by ORAL route 2 times per day; 30 tablet. - Medication Reconciliation Form, Thank You Letter, Antibiotic Education, Prescription Opioid Use form. - Follow up: Emergency Department; When: As needed; Reason: Worsening of condition. Follow up: Private Physician; When: As needed; Reason: Worsening of condition. - Problem is new. - Symptoms are unchanged. Addendum: 08/27/2019 21:17 Co-signature as Attending Physician, Ralf Carrillo MD I agree with the assessment and k dr plan of care. Signatures: Dispatcher [employer] EDMS Ralf Carrillo MD MD [facility] Yumiko Burrows, ACCOUNTS PAYABLE SUPERVISOR-C ACCOUNTS PAYABLE SUPERVISOR-Csnw Jeimy Freeman, RN RN [facility] Kandy Fuentes RN RN Chu Pedersen Corrections: (The following items were deleted from the chart) 08/26 19:05 18:05 08/26/2019 18:05 Discharged to Home. Impression: Unspecified sprain of right foot; Slipping, tripping and stumbling without falling due to stepping from one level to another. Condition is Stable. Forms are Medication Reconciliation Form, Thank You Letter, Antibiotic Education, Prescription Opioid Use. Follow up: Emergency Department; When: As needed; Reason: Worsening of condition. Follow up: Private Physician; When: As needed; Reason: Worsening of condition. Problem is new. Symptoms are unchanged. snw
--- NOTE | 2019-08-26 18:06 | ER ---
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 hb [place] other injuries. Negative LOC. Care prior to arrival: None. 16:50 Acuity: HELLEN 4 hb 16:50 Method Of Arrival: Ambulatory hb 16:58 Transition of care: patient was not received from another setting of care. Onset of rb1 symptoms was August 26, 2019. Risk Assessment: Do you want to hurt yourself or someone else? Patient reports no desire to harm self or others. Initial Sepsis Screen: Does the patient meet any 2 criteria? No. Patient's initial sepsis screen is negative. Does the patient have a suspected source of infection? No. Patient's initial sepsis screen is negative. Historical: - Allergies: 16:52 AVALOX; hb 16:52 Cipro; hb 16:52 Sulfa (Sulfonamide Antibiotics); hb - PMHx: 16:52 Diabetes - IDDM; Arthritis; Hyperlipidemia; Hypothyroidism; PRIMARY BILIARY CIRRHOSIS; hb HERPES; Hernia; Sleep Apnea; Cirrhosis; - Immunization history:: Adult Immunizations up to date. - Coronavirus screen:: The patient has NOT traveled to [place], [place], or [place] in the past 14 days. The patient has NOT had contact with known/suspected case of Coronavirus? Proceed with normal triage procedures. - Social history:: Smoking status: Patient denies any tobacco usage or history of. - Ebola Screening: : No symptoms or risks identified at this time. Screenin:58 Abuse screen: Denies threats or abuse. Nutritional screening: No deficits noted. rb1 Tuberculosis screening: No symptoms or risk factors identified. Fall Risk Fall in past 12 months (25 points). No secondary diagnosis (0 pts). No IV (0 pts). Ambulatory Aid- None/Bed Rest/Nurse Assist (0 pts). Gait- Normal/Bed Rest/Wheelchair (0 pts) Mental Status- Oriented to own ability (0 pts). Total Chin Fall Scale indicates Low Risk Score (25-44 pts). Fall prevention measures have been instituted. Side Rails Up X 2 Placed close to Nursing Station 1:1 attendant Assigned to Pt. Frequent Obs/Assesments occuring Family Present and informed to notify staff if they need to leave bedside As available Patient and Family Educated on Fall Prevention Program and strategies. Assessment: 16:58 General: Appears uncomfortable, Behavior is calm, cooperative. Pain: Complains of pain rb1 in right foot and right knee Pain currently is 10 out of 10 on a pain scale. Neuro: Level of Consciousness is awake, alert, obeys commands, Oriented to person, place, time, situation. Cardiovascular: Capillary refill < 3 seconds is brisk in bilateral fingers. Respiratory: Airway is patent Respiratory effort is even, unlabored, Respiratory pattern is regular, symmetrical. GI: No signs and/or symptoms were reported involving the gastrointestinal system. : No signs and/or symptoms were reported regarding the genitourinary system. Derm: Skin is pink, warm \T\ dry. Musculoskeletal: Range of motion: intact in all extremities. 17:52 Reassessment: Patient appears in no apparent distress at this time. No changes from rb1 previously documented assessment. pt. ambulated to the restroom without difficulty. 18:40 Reassessment: Patient appears in no apparent distress at this time. Patient and/or rb1 family updated on plan of care and expected duration. Pain level reassessed. Patient is alert, oriented x 3, equal unlabored respirations, skin warm/dry/pink. Vital Signs: 16:51 BP 152 / 62; Pulse 65; Resp 20; Temp 97.3; Pulse Ox 97% on R/A; Weight 113.4 kg; Height hb 5 ft. (152.40 cm); Pain 10/10; 17:50 BP 164 / 70; Pulse 65; Resp 19; Pulse Ox 97% on R/A; rb1 18:42 BP 144 / 57; Pulse 63; Resp 20; Pulse Ox 98% on R/A; Pain 10/10; rb1 16:51 Body Mass Index 48.82 (113.40 kg, 152.40 cm) hb ED Course: 16:37 Patient arrived in ED. ag5 16:47 Yumiko Burrows FNP-C is PHCP. snw 16:47 Ralf Carrillo MD is Attending Physician. snw 16:51 Triage completed. 16:51 Arm band placed on. 16:55 Chu Pedersen is Primary Nurse. 16:58 Patient has correct armband on for positive identification. Bed in low position. Call rb1 light in reach. Side rails up X 1. Pulse ox on. NIBP on. 19:04 No provider procedures requiring assistance completed. Patient did not have IV access during this emergency room visit. 19:39 Foot Right 3 View XRAY In Process Unspecified. EDMS 19:39 Ankle Right 3 View XRAY In Process Unspecified. 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 Exp: rb1 08/17/2021. Lot #: [id number]. } Route: IM; Site: left deltoid; 18:38 Follow up: Response: No adverse reaction Outcome: 18:05 Discharge ordered by . snw 19:04 Discharged to home via wheelchair, with family. 19:04 Condition: stable 19:04 Discharge instructions given to patient, family, Instructed on discharge instructions, follow up and referral plans. medication usage, POC Demonstrated understanding of instructions, follow-up care, medications, splint care, Prescriptions given X 1. 19:05 Patient left the ED. Signatures: Dispatcher [employer] EDIN Yumiko Burrows FNP-C GAS ENGINEER-Csnw Jeimy Freeman, RN RN [facility] Kandy Fuentes, RN RN Chu Pedersen Nikki Sheikh ag5
[2019-08-26 19:10] VITALS: TEMP 97.3
[2019-08-26 19:13] VITALS: BP 144/57; O2SAT 98
--- NOTE | 2019-08-26 19:53 | RAD REPORT ---
EXAM DESCRIPTION: RAD - Ankle Right 3 View - 08/26/2019 7:38 pm CLINICAL HISTORY: Pain;Swelling COMPARISON: None FINDINGS: Right ankle and right foot - multiple projections are submitted Moderate soft tissue swelling is seen along the dorsum of the forefoot. Small avulsion fractures are suspected from the dorsal surface of the talus and navicular with mild soft tissue swelling. Small ca lcaneal spurs are present.
== END 2019-08-26 19:05 | disposition home or self-care (01) ==
LOC: ER 16:34
DX: S93.601A Unspecified sprain of right foot, initial encounter (principal); W10.1XXA Fall (on)(from) sidewalk curb, initial encounter; Y93.9 Activity, unspecified; Y92.9 Unspecified place or not applicable; Z88.1 Allergy status to other antibiotic agents; Z88.2 Allergy status to sulfonamides
CPT/HCPCS: 90471; 90714; 99284

== ENCOUNTER 2020-06-24 07:24 | Day surgery (SDC) | payer BC, OTHER ==
--- OUTSIDE RECORDS SUMMARY | 2020-06-24 07:32 | XMS REPORT | Continuity of Care Document ---
:1960 Author Organization [facility] Care Team Providers Name Role Phone [facility] Unavailable Un available Problems Problem Status Onset Classification Date Comments Sourc e Date Reported ACUTE UTI Active 01/12/[address] RENAL 19 STONE Anxiety Resolved Problem 05/12/2019 Medica l (finding) Group Fatigue Resolved Problem 05/12/2019 Medica l (finding) Group Flaccid Resolved Problem 05/12/2019 Medica l neurogenic Group bladder (finding) Sinusitis Resolved Problem 05/12/2019 Medica l (disorder) Group Varicose veins Resolved Problem 05/12/2019 M edical of lower Group extremity (disorder) Medications Medication Details Route Status Patient Ordering Order Source Instructions Provider Date ursodiol 300 mg 300 mg = 1 Active [facility] oral capsule cap, PO, 019 Medical BID, 0 Group Refill(s) Nitrofurantoin 100 mg = 1 Active MH 100 MG Oral cap, PO, 019 Medical Capsule QID, 0 Group [Macrodantin] Refill(s) valACYclovir 500 500 mg = 1 Active MH mg oral tablet tab, PO, 019 Medical Daily, 0 Group Refill(s) gabapentin 600 MG 600 mg = 1 Active MH Oral Tablet tab, PO, 019 Medical [Gralise] Daily, # Group 90 tab, 1 Refill(s) Acetaminophen 325 1 tab, PO, Active MH MG / Hydrocodone Q6H, 0 019 Medical Bitartrate 7.5 MG Refill(s) Grou p Oral Tablet venlafaxine 75 mg 75 mg = 1 Active MH oral tablet tab, PO, 019 Medical BID, 0 Group Refill(s) Bydureon Pen 2 mg, Active MH SUB-Q, 0 019 Medical Refill(s) Group Levoxyl 0 Active MH Refill(s) 018 Medical Group Hydroxyzine 0 Active Refill(s) 018 Medical Group Humalog 0 Active MH Refill(s) 018 Medical Group atorvastatin 0 Active Refill(s) 018 Medical Group Abilify 0 Active Refill(s) 018 Medical Group Allergies, Adverse Reactions, Alerts Substance Category Reaction Severity Reaction Status Date Comments S ource type Reported sulfa drugs Assertion Drug Active allergy Medical Group Cipro Assertion Drug Active allergy Medical Group Bactrim Assertion Drug Active allergy Medical Group Avelox Assertion Drug Active allergy Medical Group Immunizations No Data Provided for This Section Results No Data Provided for This Section Pathology Reports No Data Provided for This Section Diagnostic Reports No Data Provided for This Section Consultation Notes No Data Provided for This Section Discharge Summaries No Data Provided for This Section History and Physicals No Data Provided for This Section Vital Signs Vital Sign Value Date Comments Source BMI Calculated 49.02 01/09/2019 [facility]up Weight 113.864 01/09/2019 [facility] Gr[facility] p Height 152.4 cm 01/09/2019 Medical Gr[facility] p Height 157.48 cm 07/18/2018 [facility] p BMI Calculated 40.04 07/18/2018 Medical Gr oup Weight 99.29 07/18/2018 Medical Gr[facility] p Heart Rate 80 07/18/2018 Medical Grou p Systolic (mm Hg) 125 07/18/2018 Medical Group Diastolic (mm Hg) 80 07/18/2018 Medical Group Encounters Location Location Encounter Encounter Reason Attending ADM OR Stat Source Details Type Number For Provider Date Date Visit Outpatient [id number] LUCIE 07/18 [facility] Outpatient [id number] Lucie 07/18 07/[address] [facility] Outpatient [id number] 01/03 [facility] Luis greene [facility] Outpatient [id number] Prerna 01/03 01/04 Urology [place] /2018 Medical [facility] Outpatient [id number] Lucie 01/09 [facility] [place] [id number] Lucie 01/09 [facility]10 [facility] Outpatient [id number] Lucie 03/06 Active [facility] [place] Out[facility] [id number] Lucie 05/09 Active [facility] Outpatient [id number] Lucie 05/09 05/[address] [facility] Time Share Procedures Procedure Code Date Perfomer [place] [address] 01/03/2019 Medical post-voiding Group residual urine and/or bladder capacity by ultrasound, non-imaging Complex 35919 01/03/2019 Medical uroflowmetry (eg, Group calibrated electronic equipment) Cystoscopy [id number] Medical Group Uroflowmetry [id number] Medical Group Assessment and Plan No Data Provided for This Section Plan of Care No Data Provided for This Section Social History Social History Date Source Social History TypeResponse 07/11/2018 Medical G roualice Alcohol Current Smoking Status Never smoker; Previous treatment: None; Exposure to Tobacco Smoke Unable to obtain; Cigarette Smoking Last 365 Days Unable to obtain; Reg Smoking Cessation Counseling No entered on: 05/09/19 Family History No Data Provided for This Section Advance Directives No Data Provided for This Section Functional Status No Data Provided for This Section
--- OUTSIDE RECORDS SUMMARY | 2020-06-24 07:32 | XMS REPORT | Clinical Summary ---
:1960 Author Organization [facility] Address [address] [place] [address] Care Team Providers Name Role Phone Elvis Tovar MD, P. Primary Care Provider Allergies Active Allergy Reactions Severity Noted Date Comments Moxifloxacin 03/06/2016 Ciprofloxacin 03/06/2016 Sulfa (Sulfonamide Antibiotics) 6 Sulfamethoxazole-Trimethoprim Other (See Comments) 11/2019 Medications Medication Sig Dispensed Refills Start End Status Date Date azelastine PUT ONE DROP 12 Active (OPTIVAR) 0.05 % INTO EACH EYE 6 ophthalmic solution TWICE A DAY ONETOUCH ULTRA TEST USE THREE TIMES 3 Active strip test strips DAILY, DX: 6 E11.65 ZETIA 10 mg tablet Take 10 mg by 2 Active mouth once 6 daily. HYDROcodone-acetami Take 1 tablet 0 Active nophen (NORCO) by mouth 2 6 7.5-325 mg per (two) times a tablet day. HUMALOG KWIKPEN 100 INJECT 20 UNITS 3 Active unit/mL insulin pen UNDER THE SKIN 6 3 (THREE) TIMES DAILY BEFORE MEALS. levothyroxine TAKE 1 TAB BY 1 Ac tive (SYNTHROID, MOUTH EVERY 6 LEVOTHROID) 200 MCG MORNING. tablet nitrofurantoin Take 100 mg by 0 Active (MACRODANTIN) 100 mouth. 1 MG capsule capsule following intercourse METHYLCELLULOSE Take 2 tablets 0 Active (CITRUCEL ORAL) by mouth 2 (two) times a day. DOCOSAHEXANOIC Take by mouth. 0 Active ACID/EPA (FISH OIL ORAL) propranolol Take 10 mg by 0 Acti ve (INDERAL) 10 MG mouth 3 (three) tablet times a day. ARIPiprazole Take 5 mg by 0 Acti ve (ABILIFY) 5 MG mouth daily. tablet atorvastatin Take 20 mg by 0 Act stanislav (LIPITOR) 20 MG mouth daily. tablet Default OP ins valACYclovir Take 500 mg by 0 Ac tive (VALTREX) 500 MG mouth daily. tablet vilazodone Take 40 mg by 0 Activ e (VIIBRYD) 20 mg mouth daily. tablet ursodiol (ACTIGALL) TAKE 3 CAPSULES 450 capsule 0 Active 300 mg capsule BY MOUTH EVERY 0 MORNING AND TAKE 2 CAPSULES BY MOUTH EVERY EVENING dulaglutide Inject under 0 Activ e (TRULICITY SUBQ) the skin once a week. gabapentin 300 mg Take 300 mg by 0 Active tablet extended mouth nightly. release 24 hr Take 3 tablets by mouth every night hydrOXYzine TAKE 1 TABLET 540 tablet 1 Act stanislav (ATARAX) 25 MG (25 MG TOTAL) 0 021 tabletIndications: BY MOUTH EVERY Itching 4 (FOUR) HOURS NEEDED FOR ITCHING. hydrOXYzine Take 1 tablet 180 tablet 2 Act stanislav (ATARAX) 25 MG (25 mg total) 0 021 tabletIndications: by mouth every Itching 4 (four) hours as needed for itching. GRALISE 600 mg Take 4 tablets 4 Discontinued tablet extended by mouth once 6 020 release 24 hr daily. IRVING ASPIRIN ORAL Take by mouth. 0 Discontinued 020 CRANBERRY FRUIT Take 84 mg by 0 Discontinued EXTRACT (CRANBERRY mouth. Helps 020 ORAL) not to pee as often VITAMIN E ACETATE Take by mouth. 0 Discontinued (VITAMIN E ORAL) 020 CINNAMON Take by mouth. 0 Disco ntinued [id number] 020 ORAL BYDUREON 2 mg/0.65 INJECT 0.65 ML 1 Discontinued mL pen injector UNDER THE SKIN 8 020 WEEKLY. hydrOXYzine TAKE 1 TABLET 180 tablet 2 Dis continued (ATARAX) 25 MG (25 MG TOTAL) 9 020 tabletIndications: BY MOUTH EVERY Itching 4 (FOUR) HOURS NEEDED FOR ITCHING. ursodiol (ACTIGALL) Take 3 capsules 180 capsule 11 Discontinued 300 mg capsule (900 mg total) 9 020 by mouth 2 (two) times a day. hydrOXYzine TAKE 1 TABLET 180 tablet 2 Dis continued (ATARAX) 25 MG (25 MG TOTAL) 0 020 ( Reorder) tabletIndications: BY MOUTH EVERY Itching 4 (FOUR) HOURS NEEDED FOR ITCHING. Active Problems Problem Noted Date Hyperlipidemia 10/21/2016 Ascites 10/21/2016 Primary biliary cholangitis 03/06/2016 NAFLD (nonalcoholic fatty liver disease) 03/06/2016 Cirrhosis of liver without ascites 03/06/2016 Type 2 diabetes mellitus without complication 03/06/20 16 Elevated transaminase level 03/06/2016 Encounters Date Type Specialty Care Team Description 06/10/2020 Travel 03/05/2020 Office Visit Hepatology Nilton Londono, Primary bi liary cholangitis (HCC) (Primary Dx); MD Knox; Abnormal LFTs 03/05/2020 Refill Gastroenterology Nilton Londono Itchin g MD 03/04/2020 Travel 12/15/2019 Refill Gastroenterology Nilton Londono Itchin g MD 12/14/2019 Telemedicine Hepatology Nilton Londono, Primary bi liary cholangitis (HCC) (Primary Dx); NAFLD (nonalcoh olic fatty liver disease); Obesity, unspec ified obesity severity, unspecified obesity type; Screening for c ancer 08/21/2019 Refill Gastroenterology Nilton Londono MD after 06/24/2019 Surgical History Surgery Date Site/Laterality Comments FOOT SURGERY x2 in 70's BLADDER SURGERY 80's SECTION x2 LIVER RESECTION 09/03/2005 HERNIA REPAIR Medical History Medical History Date Comments PBC (primary biliary cirrhosis) NAFLD (nonalcoholic fatty liver disease) Diabetes mellitus (HCC) Cirrhosis (HCC) Hypertension Herpes Back pain Hemangioma Hyperlipidemia Arthritis Hypothyroidism Sleep apnea Family History Medical History Relation Name Comments Diabetes Father Heart attack Father Lupus Father Depression Mother Diabetes Mother Lupus Mother Depression Sister Relation Name Status Comments Father Mother Sister Social History Tobacco Use Types Packs/Day Years Used Date Never Smoker Smokeless Tobacco: Never Used Alcohol Use Drinks/Week oz/Week Comments Yes Sex Assigned at Date Recorded Not on file COVID-19 Exposure Response Date Recorded In the last month, have you been in contact with No / Unsure 06/10/2020 8:31 AM [facility] someone who was confirmed or suspected to have Coronavirus / COVID-19? Last Filed Vital Signs Vital Sign Reading Time Taken Comments Blood Pressure 143/70 03/05/2020 1:09 PM CDT Pulse 76 03/05/2020 1:09 PM CDT Temperature - - Respiratory Rate - - Oxygen Saturation 95% 03/05/2020 1:09 PM CDT Inhaled Oxygen Concentration - - Weight 117 kg (257 lb 8 oz) 03/05/2020 1:09 PM CDT Height 165.1 cm (5' 5") 03/05/2020 1:09 PM CDT Body Mass Index 42.85 03/05/2020 1:09 PM CDT Plan of Treatment Date Type Specialty Care Team Description 07/11/2020 Telemedicine Hepatology Nilton Londono MD [address] [place] [address] [phone] Health Maintenance Due Date Last Done Comments DIABETES: RETINAL EYE EXAM 01/16/1972 DIABETIC FOOT EXAM 01/16/1972 URINE MICROALBUMIN 01/16/1972 CERVICAL CANCER SCREENING 1983 BREAST CANCER SCREENING 01/16/2012 COLONOSCOPY SCREENING 01/16/2012 SHINGLES VACCINES (#1) 01/16/2012 INFLUENZA VACCINE 03/02/2020 07/19/2019 Procedures Procedure Name Priority Date/Time Associated Comments Diagnosis PROTHROMBIN TIME WITH Routine 02/07/2020 3:54 Primary biliary Results for this INR PM CDT cholangitis (HCC ) procedure are in NAFLD (nonalcoholic the resu lts fatty liver section. disease) Obesity, unspecified obesity severity, unspecified obesity type GGT Routine 02/07/2020 3:54 Primary biliary Results for this PM CDT cholangitis (HCC ) procedure are in NAFLD (nonalcoholic the resu lts fatty liver section. disease) Obesity, unspecified obesity severity, unspecified obesity type COMPREHENSIVE Routine 02/07/2020 3:54 Primary biliary Results for this METABOLIC PANEL PM CDT cholangitis (HCC ) procedure are in NAFLD (nonalcoholic the resu lts fatty liver section. disease) Obesity, unspecified obesity severity, unspecified obesity type CBC WITH PLATELET AND Routine 02/07/2020 3:54 Primary biliary Results for this DIFFERENTIAL PM CDT cholangitis (HCC ) procedure are in NAFLD (nonalcoholic the resu lts fatty liver section. disease) Obesity, unspecified obesity severity, unspecified obesity type PROTHROMBIN TIME WITH Routine 11/30/2019 2:57 Primary biliary Results for this INR PM CDT cholangitis (HCC ) procedure are in Cirrhosis of liver the resul ts without ascites, section. unspecified hepatic cirrhosis type (HCC) NAFLD (nonalcoholic fatty liver disease) GGT Routine 11/30/2019 2:57 Primary biliary Results for this PM CDT cholangitis (HCC ) procedure are in Cirrhosis of liver the resul ts without ascites, section. unspecified hepatic cirrhosis type (HCC) NAFLD (nonalcoholic fatty liver disease) COMPREHENSIVE Routine 11/30/2019 2:57 Primary biliary Results for this METABOLIC PANEL PM CDT cholangitis (HCC ) procedure are in Cirrhosis of liver the resul ts without ascites, section. unspecified hepatic cirrhosis type (HCC) NAFLD (nonalcoholic fatty liver disease) CBC WITH PLATELET AND Routine 11/30/2019 2:57 Primary biliary Results for this DIFFERENTIAL PM CDT cholangitis (HCC ) procedure are in Cirrhosis of liver the resul ts without ascites, section. unspecified hepatic cirrhosis type (HCC) NAFLD (nonalcoholic fatty liver disease) after 06/24/2019 Results Prothrombin time with INR (02/07/2020 3:54 PM CDT)Only the most recent of2 resultswithin the time period is included. INR 0.9 geolad Comment: SANTY Reference Range 0.9-1.1 Moderate-intensity Warfarin Therapy 2.0-3.0 Higher-intensity Warfarin Therapy 3.0-4.0 Prothrombin time 9.8 9.0 - 11.5 geol[facility] Comment: birgit CARTER For more information on this test, go to: http://education.iBuildApp.Bensata/faq/PJA166 Specimen Blood Narrative Performed At FASTING:YES [facility] FASTING: YES Resulting Agency Comment Performing Organization Information: Site ID: [id number] Name: [facility] Address: [address] [place] [phone] Director: Javi Zimmerman Performing Organization Address City/State/ZIP Code Phon e Number [facility] [address] [phone] CBC with platelet and differential (02/07/2020 3:54 PM CDT)Only the most recent of2 resultswithin the time period is included. Pathologist Sig nature WBC 4.8 3.8 - 10.8 [facility] Thousand/uL [place] RBC 4.87 3.80 - 5.10 [facility] Million/uL [place] HGB 14.2 11.7 - 15.5 [facility] g/dL [place] HCT 42.1 35.0 - 45.0 % [facility] [place] MCV 86.4 80.0 - 100.0 fL [facility] [place] MCH 29.2 27.0 - 33.0 pg [facility] [place] MCHC 33.7 32.0 - 36.0 [facility] g/dL [place] RDW 13.6 11.0 - 15.0 % [facility] [place] Platelet count 182 140 - 400 [facility] Thousand/uL [place] MPV 12.0 7.5 - 12.5 fL [facility] [place] Neutrophils, absolute 2,746 1,500 - 7,800 [facility] cells/uL [place] Lymphocytes, absolute 1,426 850 - 3,900 [facility] cells/uL [place] Monocytes, absolute 350 200 - 950 [facility] cells/uL [place] Eosinophils, absolute 221 15 - 500 [facility] cells/uL [place] Basophils, absolute 58 0 - 200 [facility] cells/uL [place] Neutrophils 57.2 % [facility] [place] Lymphocytes 29.7 % [facility] [place] Monocytes 7.3 % [facility] [place] Eosinophils 4.6 % [facility] [place] Basophils + RC 1.2 % [facility] [place] Specimen Blood Narrative Performed At FASTING:YES [facility] FASTING: YES Resulting Agency Comment Performing Organization Information: Site ID: [id number] Address: [address] [place] [phone] Director: Javi Zimmerman Performing Organization Address City/State/ZIP Code Phon e Number [facility] [place] [address] [place], [place] [id number] GGT (02/07/2020 3:54 PM CDT)Only the most recent of2 resultswithin the time period is included. Pathologist Sig nature GGT 120 (H) 3 - 70 U/L [facility] [place] Specimen Blood Narrative Performed At FASTING:YES [facility] FASTING: YES Resulting Agency Comment Performing Organization Information: Site ID: [id number] Name: [facility] Address: [address] [place] [address], [place] [address] Director: Javi Zimmerman Performing Organization Address City/State/ZIP Code Phon e Number [facility] [place] [address] [place] [address] Comprehensive metabolic panel (02/07/2020 3:54 PM CDT)Only the most recent of2 resultswithin the time period is included. Glucose 140 (H) 65 - 99 [facility] Comment: mg/dL [place] Fasting reference interval For someone without known diabetes, a glucose value >125 mg/dL indicates that they may have diabetes and this should be confirmed with a follow-up test. BUN 13 7 - 25 mg/dL [facility] [place] Creatinine 0.66 0.50 - 1.05 [facility] Comment: mg/dL [place] For patients >49 years of age, the reference limit for Creatinine is approximately 13% higher for people identified as -[place] Island[place]. EGFR Non-Afr. 97 > OR = 60 [facility] [place] mL/min/1.73m [place] 2 EGFR 113 > OR = 60 [facility] [place] mL/min/1.73m [place] 2 BUN/creatinine NOT APPLICABLE 6 - 22 [facility] ratio (calc) [place] Sodium 141 135 - 146 [facility] mmol/L [place] Potassium 4.1 3.5 - 5.3 [facility] mmol/L [place] Chloride 106 98 - 110 [facility] mmol/L [place] CO2 27 20 - 32 [facility] mmol/L [place] Calcium 9.3 8.6 - 10.4 [facility] mg/dL [place] Protein 6.9 6.1 - 8.1 [facility] g/dL [place] Albumin, S 3.9 3.6 - 5.1 [facility] g/dL [place] Globulin, total 3.0 1.9 - 3.7 [facility] g/dL (calc) [place] Albumin/globulin 1.3 1.0 - 2.5 [facility] ratio (calc) [place] Total bilirubin 0.5 0.2 - 1.2 [facility] mg/dL [place] Alkaline 158 (H) 37 - 153 U/L [facility] phosphatase [place] AST 25 10 - 35 U/L [facility] [place] ALT 28 6 - 29 U/L [facility] [place] Specimen Blood Narrative Performed At FASTING:YES [facility] FASTING: YES Resulting Agency Comment Performing Organization Information: Site ID: [id number] Address: [address] [place] [address] Director: Javi Zimmerman Performing Organization Address City/State/ZIP Code Phon e Number [facility] [address] [phone] after 06/24/2019 Advance Directives For more information, please contact: [phone] Type Date Recorded Patient Director Public Explanati on Advance Directives, Living Will and Medical Power of Recreational Specialist
--- OUTSIDE RECORDS SUMMARY | 2020-06-24 07:34 | XMS REPORT | Continuity of Care Document ---
:1960 Author Organization [facility] t Address [address] [place] [address] Care Team Providers Name Role Phone Elvis Tovar MD, P. Primary Care Physician Nurse, Endo/Diab Attending Clinician Unavailable Doctor Unassigned, Name Attending Clinician Unavailable Himanshu Wall Attending Clinician Bry SPRAGUE, W. Attending Clinician Jin SPRAGUE Attending Clinician Pauline Fernandez Attending Clinician Payers Payer Name Policy Type Policy Effective Date Expiration Date [facility] Number TRICARETRICARE FOR [id number] 2017 [place] MCR 00:00:00 [place] [id number] /-PresentMili leighton BCBSBCBS CHOICE [id number] 2017 [place] PPO/[facility] 9 00:00:00 Methodis t [id number]/08/03 018-PresentPPO Problems Condition Condition Condition Status Onset Resolution Last Treating Co mments Source Name Details Category Date Date Treatment Clinician Date ACUTE UTI Diagnosis Active 2019-03-30 Memoria RENAL 6-12 17:14:00 l STONE ACUTE 00:00: Doland UTI 00 RENAL STONE Active 01/11/2019 [facility] Hyperlipid Hyperlipid Disease Active H hetal franklin 10-21 Methodi 00:00: st 00 Ascites Ascites Disease Active [place] 10-21 Methodi 00:00: st 00 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 03-06 Methodi cholangiti cholangiti 00:00: st s s 00 NAFLD NAFLD Disease Active [place] (nonalcoho (nonalcoho 03-06 Me thodi lic fatty lic fatty 00:00: st liver liver 00 disease) disease) Cirrhosis Cirrhosis Disease Active Pao ston of liver of liver 03-06 Method i without without 00:00: st ascites ascites 00 Type 2 Type 2 Disease Active [place] diabetes diabetes 03-06 Method i mellitus mellitus 00:00: st without without 00 complicati complicati on on Elevated Elevated Disease Active [place] transamina transamina 03-06 Me thodi se level se level 00:00: st 00 Anxiety Problem Resolve 2019-05-12 Mem oria (finding) d 01:01:58 l Anxiety Simón (finding) Resolved Problem 05/12/2019 [facility] Fatigue Problem Resolve 2019-05-12 Mem oria (finding) d 01:01:58 l Fatigue Doland (finding) Resolved Problem 05/12/2019 [facility] Flaccid Problem Resolve 2019-05-12 Mem oria neurogenic d 01:01:58 l bladder Flaccid Luis n (finding) neurogenic bladder (finding) Resolved Problem 05/12/2019 [facility] Sinusitis Problem Resolve 2019-05-12 M emoria (disorder) d 01:01:58 l Simón Sinusitis (disorder) Resolved Problem 05/12/2019 [facility] Varicose Problem Resolve 2019-05-12 Me moria veins of d 01:01:58 l lower Varicose Luis n extremity veins of (disorder) lower extremity (disorder) Resolved Problem 05/12/2019 [facility] Allergies, Adverse Reactions, Alerts Allergy Allergy Status Severity Reaction(s) Onset Inactive Treating Comm ents Source Name Type Date Date Clinician Sulfamet Propensi Active Other (See Ho [place] hoxazole ty to Comments) 03-05 Metho di -Trimeth adverse 00:00: st oprim reaction 00 s to drug Moxiflox Propensi Active [place] acin ty to 03-06 Methodi adverse 00:00: st reaction 00 s to drug Ciproflo Propensi Active [place] xacin ty to 03-06 Methodi adverse 00:00: st reaction 00 s to drug Sulfa Propensi Active [place] (Sulfona ty to 03-06 Methodi mide adverse 00:00: st Antibiot reaction 00 ics) s to drug sulfa sulfa Active Memoria drugs drugs l Doland Cipro Cipro Active Memoria l Doland Bactrim Bactrim Active Memoria l Doland Avelox Avelox Active Memoria l Doland Family History Family Member Diagnosis Comments Start Date Stop Date Source Natural father Diabetes [place] [facility] Natural father Heart attack [place] [facility] Natural father Lupus [place] [facility] Natural mother Depression [place] [facility] Natural mother Diabetes [place] [facility] Natural mother Lupus [place] [facility] Natural sister Depression [place] [facility] Social History Social Habit Start Date Stop Date Quantity Comments Source Sex Assigned At [facility] ethodist Exposure to Not sure [place] Metho dist SARS-CoV-2 (event) Tobacco use and 2020-03-05 2020-03-05 Never used [facility] ethodist exposure 00:00:00 00:00:00 Alcohol intake 2020-03-05 2020-03-05 Current drinker Stu on Moravian 00:00:00 00:00:00 of alcohol (finding) Social History 2018-07-11 2018-07-11 [facility] geovani 15:10:51 15:10:51 Smoking Status Start Date Stop Date Source Never smoker [facility] [facility] Medications Ordered Filled Start Stop Current Ordering Indication Dosage Frequency Signature Comments Components Source Medication Medication Date Date Medication? Clinician (SIG) Name Name VITAMIN E 2020- No Take by Cecilia ton ACETATE - 08- mouth. Methodi (VITAMIN E 13:21: 00:00 st ORAL) 23 :00 nitrofurant 2019-0 Yes 100mg Take 100 [place] oin 8-04 mg by Methodi (MACRODANTI 13:21: mouth. 1 st N) 100 MG 21 capsule capsule following intercours e METHYLCELLU Yes 2{tbl} Q.5D Take 2 [place] LOSE 8-04 tablets by Methodi (CITRUCEL 13:21: mouth 2 st ORAL) 21 (two) times a day. DOCOSAHEXAN 2020-0 Yes Take by Pao usjc OIC 8-04 mouth. Methodi ACID/EPA 13:21: st (FISH OIL 21 ORAL) propranolol 2020-0 Yes 10mg [id number] Take 10 mg [place] (INDERAL) 8-04 [id number] by mouth 3 Methodi 10 MG 13:21: 3D (three) st tablet 21 times a day. ARIPiprazol 2020-0 Yes 5mg QD Take 5 mg H oucolin e (ABILIFY) 8-04 by mouth Meth surinder 5 MG tablet 13:21: daily. st 21 atorvastati 2020-0 Yes 20mg QD Take 20 mg [place] n (LIPITOR) 8-04 by mouth Meth surinder 20 MG 13:21: daily. st tablet 21 Default OP ins valACYclovi 2020-0 Yes 500mg QD Take 500 H oucolin r (VALTREX) 8-04 mg by Methodi 500 MG 13:21: mouth st tablet 21 daily. vilazodone 2020-0 Yes 40mg QD Take 40 mg [place] (VIIBRYD) 8-04 by mouth Method i 20 mg 13:21: daily. st tablet 21 dulaglutide 2020-0 Yes Q7D Inject [place] (TRULICITY 03-05 under the Meth surinder SUBQ) 13:21: skin once st 21 a week. gabapentin 2020-0 Yes 300mg QD Take 300 [place] 300 mg 8-04 mg by Methodi tablet 13:21: mouth st extended 21 nightly. release 24 Take 3 hr tablets by mouth every night CRANBERRY 2020-0 2020- No 84mg Take 84 mg H oucolin FRUIT 03-05 by mouth. Methodi EXTRACT 13:19: 00:[address] (CRANBERRY 18 :00 to pee as ORAL) often CINNAMON 2020-0 2020- No Take by Stu on BARK-CHROMI 03-05 mouth. Metho di UM-ALA ORAL 13:19: 00:00 st 15 :00 IRVING 2020-0 2020- No Take by Santy ASPIRIN 03-05 mouth. Methodi ORAL 13:19: 00:00 st 11 :00 hydrOXYzine 2020-0 2020- No Itching 25mg Q4H TAKE 1 [place] (ATARAX) 25 8-04 08-04 TABLET (25 M ethodi MG tablet 00:00: 23:59 MG TOTAL) st 00 :00 BY MOUTH EVERY 4 (FOUR) HOURS NEEDED FOR ITCHING. hydrOXYzine 2020- No Itching 25mg Q4H Take 1 [place] (ATARAX) 25 8-04 08-04 tablet (25 M ethodi MG tablet 00:00: 23:59 mg total) st 00 :00 by mouth every 4 (four) hours as needed for itching. hydrOXYzine 2019- No Itching 25mg Q4H TAKE 1 [place] (ATARAX) 25 5-18 08-04 TABLET (25 M ethodi MG tablet 00:00: 00:00 MG TOTAL) st 00 :00 BY MOUTH EVERY 4 (FOUR) HOURS NEEDED FOR ITCHING. ursodiol Yes TAKE 3 [place] (ACTIGALL) 1-20 CAPSULES Metho di 300 mg 00:00: BY MOUTH st capsule 00 EVERY MORNING AND TAKE 2 CAPSULES BY MOUTH EVERY EVENING hydrOXYzine 2018-08- No Itching 25mg Q4H TAKE 1 [place] (ATARAX) 25 1-20 05-18 TABLET (25 M ethodi MG tablet 00:00: 00:00 MG TOTAL) st 00 :00 BY MOUTH EVERY 4 (FOUR) HOURS NEEDED FOR ITCHING. ursodiol 2018-08- No 900mg Q.5D Take 3 [place] (ACTIGALL) 1-14 01-20 capsules Meth surinder 300 mg 00:00: 00:00 ([address] capsule 00 :00 total) by mouth 2 (two) times a day. ursodiol 2018-08 Yes 300 mg = 1 Mem oria 300 mg oral 0-08 cap, PO, l capsule 19:17: BID, 0 Doland 00 Refill(s) Nitrofurant 2018-08 Yes 100 mg = 1 Memoria oin 100 MG 0-08 cap, PO, l Oral 19:17: QID, 0 Simón Capsule 00 Refill(s) [Macrodanti n] valACYclovi 2018-08 Yes 500 mg = 1 Memoria r 500 mg 0-08 tab, PO, l oral tablet 19:17: Daily, 0 He rmann 00 Refill(s) gabapentin 2018-08 Yes 600 mg = 1 M emoria 600 MG Oral 0-08 tab, PO, l Tablet 19:17: Daily, # Simón [Gralise] 00 90 tab, 1 Refill(s) Acetaminoph 2018-08 Yes 1 tab, PO, Memoria en 325 MG / 0-08 Q6H, 0 l Hydrocodone 19:17: Refill(s) H [place] Bitartrate 00 7.5 MG Oral Tablet venlafaxine 2018-08 Yes 75 mg = 1 M emoria 75 mg oral 0-08 tab, PO, l tablet 19:17: BID, 0 Refill(s) Bydureon 2018-08 Yes 2 mg, Memoria Pen 0-08 SUB-Q, 0 l 19:17: Refill(s) Levoxyl 2017-08 Yes 0 Memoria 2-10 Refill(s) l 15:06: Hydroxyzine 2017-08 Yes 0 Memori a 2-10 Refill(s) l 15:06: Humalog 2017-08 Yes 0 Memoria 2-10 Refill(s) l 15:05: atorvastati 2017-08 Yes 0 Memori a n 2-10 Refill(s) l 15:05: Abilify 2017-08 Yes 0 Memoria 2-10 Refill(s) l 15:04: BYDUREON 2 2020- No INJECT [place] mg/0.65 mL 4-03 08-04 0.65 ML Metho di pen 00:00: 00:[address] injector 00 :00 SKIN WEEKLY. ZETIA 10 mg Yes 10mg QD Take 10 mg [place] tablet 7-23 by mouth Methodi 00:00: once st 00 daily. azelastine Yes PUT ONE [place] (OPTIVAR) 7-20 DROP INTO Metho di 0.05 % 00:00: EACH EYE st ophthalmic 00 TWICE A solution DAY HUMALOG Yes INJECT 20 [place] KWIKPEN 100 7-20 UNITS Methodi unit/mL 00:00: UNDER THE st insulin pen 00 SKIN 3 (THREE) TIMES DAILY BEFORE MEALS. levothyroxi Yes TAKE 1 TAB [place] ne 7-20 BY MOUTH Methodi (SYNTHROID, 00:00: EVERY st LEVOTHROID) 00 MORNING. 200 MCG tablet GRALISE 600 2020- No 4{tbl} QD Take 4 [place] mg tablet 01-25-04 tablets by Met mauricio gilbert 00:00: 00:[address] release 24 00 :00 daily. hr HYDROcodone Yes 1{tbl} Q.5D Take 1 [place] -acetaminop 6-21 tablet by Met mauricio hen (NORCO) 00:00: mouth 2 st 7.5-325 mg 00 (two) per tablet times a day. ONETOUCH Yes USE THREE [place] ULTRA TEST 5-24 TIMES Methodi strip test 00:00: DAILY, DX: s t strips 00 E11.65 Vital Signs Vital Name Observation Time Observation Value Comments Source Systolic blood 2020-03-05 13:09:00 143 mm[Hg] Karen n [facility] pressure Diastolic blood 2020-03-05 13:09:00 70 mm[Hg] Stu on Moravian pressure Heart rate 2020-03-05 13:09:00 76 /min [place] [facility] Body height 2020-03-05 13:09:00 165.1 cm [place] [facility] Body weight 2020-03-05 13:09:00 116.801 kg [place] [facility] BMI 2020-03-05 13:09:00 42.85 kg/m2 [place] [facility] Oxygen saturation in 2020-03-05 13:09:00 95 /min [facility] Arterial blood by Pulse oximetry BMI Calculated 2019-01-09 18:42:00 Memori al Doland Weight 2019-01-09 18:42:00 [facility] Height 2019-01-09 18:42:[facility] 2018-07-18 21:55:[address] [facility] BMI Calculated 2018-07-18 21:55:00 Memori al Simón Weight 2018-07-18 21:55:00 [facility] Heart Rate 2018-07-18 21:55:00 [facility] Doland Systolic (mm Hg) 2018-07-18 21:55:00 Otto dhillon Doland Diastolic (mm Hg) 2018-07-18 21:55:00 Mem orial Doland Procedures Procedure Date / Time Performed Performing Clinician Sour e CBC WITH PLATELET AND 2020-02-07 15:54:00 Pauline Londono on [facility]avian DIFFERENTIAL COMPREHENSIVE METABOLIC 2020-02-07 15:54:00 Pauline Londono [facility] PANEL GGT 2020-02-07 15:54:00 Pauline Londono Met hodist PROTHROMBIN TIME WITH INR 2020-02-07 15:54:00 Pauline Londono [facility] CBC WITH PLATELET AND 2019-11-30 14:57:00 Pauline Londono on [facility] DIFFERENTIAL COMPREHENSIVE METABOLIC 2019-11-30 14:57:00 Pauline Londono [facility] PANEL GGT 2019-11-30 14:57:00 Pauline Londono Met hodist PROTHROMBIN TIME WITH INR 2019-11-30 14:57:00 Pauline Londono [facility] Measurement of 2019-01-03 21:41:00 [facility] post-voiding residual urine and/or bladder capacity by ultrasound, non-imaging Complex uroflowmetry (eg, 2019-01-03 21:41:00 [facility] calibrated electronic equipment) Cystoscopy [facility] Uroflowmetry [facility] Plan of Care Planned Activity Planned Date Details Comments Source Future Scheduled 2020-03-02 INFLUENZA VACCINE [place] Test 00:00:00 [code = INFLUENZA VACCINE] Future Scheduled 2012-01-16 BREAST CANCER [place] [facility] Test 00:00:00 SCREENING [code = BREAST CANCER SCREENING] Future Scheduled 2012-01-16 COLONOSCOPY SCREENING [place] [facility] Test 00:00:00 [code = COLONOSCOPY SCREENING] Future Scheduled 2012-01-16 SHINGLES VACCINES (#1) [place] [facility] Test 00:00:00 [code = SHINGLES VACCINES (#1)] Future Scheduled 1983 Screening for [place] [facility] Test 00:00:00 malignant neoplasm of cervix (procedure) [code = 676535024] Future Scheduled 1972-01-16 DIABETES: RETINAL EYE [place] [facility] Test 00:00:00 EXAM [code = DIABETES: RETINAL EYE EXAM] Future Scheduled 1972-01-16 DIABETIC FOOT EXAM [place] [facility] Test 00:00:00 [code = DIABETIC FOOT EXAM] Future Scheduled 1972-01-16 URINE MICROALBUMIN [place] [facility] Test 00:00:00 [code = URINE MICROALBUMIN] Encounters Start End Encounter Admission Attending Care Care Encounter Source Date/Time Date/Time Type Type Clinicians Facility Department ID 2019-01-12 Outpatient [facility]RO [id number] MH 08:20:44 [facility] 2020-05-16 2020-05-16 Outpatient [facility] [id number] [facility] 00:00:00 00:00:00 Courtney salazar Outpati ent Clinics 2020-04-23 2020-04-23 Nurse Nurse, Bienvenido [facility] [id number] 13:22:36 14:16:50 Visit Endo/Diab Arnold [id number] [place] [id number] Professio [phone] [address] 2020-04-23 2020-04-23 Orders Doctor ALEJANDRA [id number] 00:00:00 00:00:00 Only Unassigned, BLANCA [id number] [place] [facility] [id number] [id number] 2020-04-19 2020-04-19 Telephone [facility] [id number] 00:00:00 00:00:00 Jorge Luis Barrett [id number] [place] [id number] Professio [phone] 2020-03-05 2020-03-05 Outpatient BRY, [facility] [id number] 900 [place] 00:00:00 00:00:00 PAULINE Vo [facility] i [facility] 2020-02-27 2020-02-27 Telephone Jin [facility] [id number] 00:00:00 00:00:00 Arielle Barrett [id number] [place] [id number] Professio [id number] [address] 2019-12-14 2019-12-14 Outpatient BRY, [facility] [id number] 400 [place] 00:00:00 00:00:00 PAULINE Crowell [facility] st 2019-05-09 2019-05-09 Outpatient Hoggatt, [facility] [id number] 13:50:00 23:59:59 Kalin Callaway 2019-01-09 2019-01-09 Outpatient [place], [facility] [id number] 13:30:00 23:59:59 Kalin Callaway 2019-01-03 2019-01-03 Outpatient Rebecca [facility] [id number] 15:30:00 23:59:59 Kalin Callaway 2018-07-18 2018-07-18 Outpatient MIGEL Fernandez [facility] [id number] 15:30:00 23:59:59 Kalin Callaway Results Test Description Test Time Test Comments Results Result Comments Source Comprehensive metabolic panel 2020-02-08 01:11:00 Test Item Value Reference Range Interpretation Comme nts Glucose (test code = 140 mg/dL 65-99 H Fasting 2345-7) reference inter marek For someone without known diabetes, a glu cosevalue >125 mg/dL bea cates that they may havedi abetes and this should be confirmed with afollow-up test. BUN (test code = 13 mg/dL 02-23 3094-0) Creatinine (test code = 0.66 mg/dL 0.5-1.05 For patients >49 years of 2160-0) age, the refere nce limitfor Creati nine is approximately 1 3% higher for peopleident ified as -Linsey n. EGFR Non-Afr. Indian 97 > OR = 60 (test code = 2775) mL/min/1.73m2 EGFR 113 > OR = 60 (test code = 00169-5) mL/min/1.73m2 BUN/creatinine ratio NOT APPLICABLE - (calc) (test code = 3097-3) Sodium (test code = 141 mmol/L 449-154 7922-2) Potassium (test code = 4.1 mmol/L 3.5-5.3 2823-3) Chloride (test code = 106 mmol/L 98-110 2075-0) CO2 (test code = 27 mmol/L 20-32 8-9) Calcium (test code = 9.3 mg/dL 8.6-10.4 46660-5) Protein (test code = 6.9 g/dL 6.1-8.1 2885-2) Albumin, S (test code = 3.9 g/dL 3.6-5.1 1751-7) Globulin, total (test 3.0 1.9- 3.7 g/dL code = 63537-7) (calc) Albumin/globulin ratio 1.3 1.0- 2.5 (test code = 1759-0) (calc) Total bilirubin (test 0.5 mg/dL 0.2-1.2 code = 1975-2) Alkaline phosphatase 158 U/L 37-153 H (test code = 6768-6) AST (test code = 25 U/L 10-35 1920-8) ALT (test code = 28 U/L 6- 1742-6) HONEY (test code = HONEY) FASTING:YESFASTING: YES RAC (test code = RAC) Performing Organization Information: Site ID: [facility] Name: [id number] (moKredit)[facility] Address: [address] [place] [address] Director: Javi Zimmerman Lab Interpretation Abnormal (test code = 86815-2) [facility] [id number] 01:11:00 Test Item Value Reference Range Interpretation Comments GGT (test code = 2324-2) 120 U/L 3-70 H HONEY (test code = HONEY) FASTING:YESFASTING: YES RAC (test code = RAC) Performing Organization Information: Site ID: [id number] Name: [id number] (moKredit)[facility] Address: [address] [place] [address] Director: Javi Zimmerman Lab Interpretation (test Abnormal code = 86060-9) [facility] with platelet and [id number] 01:11:00 Test Item Value Reference Range Interpretation Comments WBC (test code = 4.8 3.8- 10.8 6690-2) Thousand/uL RBC (test code = 4.87 3.80- 5.10 789-8) Million/uL HGB (test code = 14.2 g/dL 11.7-15.5 718-7) HCT (test code = 42.1 % 35-45 4544-3) MCV (test code = 86.4 fL 80-100 787-2) MCH (test code = 29.2 pg 27-33 785-6) MCHC (test code = 33.7 g/dL 32-36 786-4) RDW (test code = 13.6 % 11-15 788-0) Platelet count (test 182 140- 400 code = 777-3) Thousand/uL MPV (test code = 12.0 fL 7.5-12.5 776-5) Neutrophils, absolute 2746 1,500 - 7,800 (test code = 751-8) cells/uL Lymphocytes, absolute 1426 850- 3,900 (test code = 731-0) cells/uL Monocytes, absolute 350 200- 950 cells/uL (test code = 742-7) Eosinophils, absolute 221 15- 500 cells/uL (test code = 711-2) Basophils, absolute 58 0- 200 cells/uL (test code = 704-7) Neutrophils (test 57.2 % code = 770-8) Lymphocytes (test 29.7 % code = 736-9) Monocytes (test code 7.3 % = 5905-5) Eosinophils (test 4.6 % code = 713-8) Basophils + RC (test 1.2 % code = 706-2) HONEY (test code = HONEY) FASTING:YESFASTING: YES RAC (test code = RAC) Performing Organization Information: Site ID: [id number] Name: [id number] (moKredit)[facility] Address: [address] [place] [phone] Director: Javi ShahidProthrombin time with [id number] 01:11:00 Test Item Value Reference Range Interpretation Comments INR (test code = 0.9 Reference R rissa 6301-6) 0.9-1.1Moderate -i ntensity Warfar in Therapy 2.0-3.0Higher-i nt ensity Warfarin Therapy 3.0-4 .0 Prothrombin time 9.8 9.0- 11.5 sec For more (test code = information on 5902-2) this test, go to:[email or web address] HONEY (test code = FASTING:YESFASTING: HONEY) YES RAC (test code = Performing RAC) Organization Information: Site ID: [id number] Name: [id number] (moKredit)[facility] Address: [address] [place] [phone] Director: Javi Shahid
[2020-06-24] MEDS ORDERED: NA CHLORIDE 0.9% 1,000 ML ONE (07:41)
[2020-06-24] MEDS ORDERED: LIDOCAINE 1% MPF 5 ML VIAL ONE (08:41)
[2020-06-24] MEDS ORDERED: LIDOCAINE 2% MPF 5 ML VIAL ONE (08:48)
[2020-06-24] MEDS ORDERED: propofoL 200 MG/20 ML VIAL IV ONE (08:49)
--- NOTE | 2020-06-24 09:21 | ENDO RPT ---
[address], [address] COLONOSCOPY PROCEDURE REPORT EXAM DATE: 06/24/2020 PATIENT NAME: Kylee Sandhu MR #: [id number] BIRTHDATE: 1960 ATTENDING: Shiva Zuniga DR STATUS: outpatient CIGARETTE TIPPER: Luther Kumar CST, Cindy Mcnulty RN, and Alicia Santiago RN INDICATIONS: The patient is a 60 yr old Female here for a colonoscopy due to colon cancer screening PROCEDURE PERFORMED: Colonoscopy with biopsy - cold polypectomy MEDICATIONS: Per Anesthesia. ESTIMATED BLOOD LOSS: None CONSENT: The patient understands the risks and benefits of the procedure and understands that these risks include, but are not limited to: sedation, allergic reaction, infection, perforation and/or bleeding. Alternative means of evaluation and treatment include, among others: physical exam, x-rays, and/or surgical intervention. The patient elects to proceed with this endoscopic procedure. DESCRIPTION OF PROCEDURE: During intra-op preparation period all mechanical medical equipment was checked for proper function. Hand hygiene and appropriate measures for infection prevention was taken. Procedure, possible complications, alternatives including, but not limited to possibility of bleeding, perforation, tear, infection, sepsis, need for surgery, need for blood transfusion, were explained to the patient. After the risks, benefits and alternatives of the procedure were thoroughly explained, Informed consent was verified, confirmed and timeout was successfully executed by the treatment team. The patient was placed in the left lateral position. A digital rectal exam was performed and revealed internal hemorrhoids. After appropriate level of anesthesia, the scope was passed. The [id number] ([id number]) endoscope was introduced through the anus and advanced to the cecum, which was identified by both the appendix and ileocecal valve. The quality of the prep was fair. The instrument was then slowly withdrawn as the colon was fully examined. Scope withdrawal time was 9 minutes. COLON FINDINGS: A small smooth sessile polyp was found in the rectosigmoid colon. A polypectomy was performed with cold forceps. The resection was complete, the polyp tissue was completely retrieved and sent to histology. Retroflexed views revealed no abnormalities. The scope was then completely withdrawn from the patient and the procedure terminated. ADVERSE EVENTS: There were no complications. IMPRESSIONS: Small sessile polyp was found in the rectosigmoid colon; polypectomy was performed with cold forceps RECOMMENDATIONS: 1. avoid NSAIDS for 2 weeks 2. fiber rich diet 3. await biopsy results 4. follow-up: GI lab 2 week(s) 5. Monitor for any evidence of rectal bleeding. 6. hemorrhoidal hygiene RECALL: for Colonoscopy, pending biopsy results. Shiva Zuniga DR eSigned: Shiva Zuniga DR 06/24/2020 9:21 AM cc: CPT CODES: ICD9 CODES: PATIENT NAME: Kylee Sandhu MR#: [id number]
[2020-06-24 09:49] VITALS: BP 124/55; TEMP 97.9; O2SAT 98
== END 2020-06-24 10:04 | disposition home or self-care (01) ==
LOC: OR 07:24
PROVIDERS: ATTEND Surgery
PROC: 0DBN7ZX Excision of Sigmoid Colon, Via Natural or Artificial Opening, Diagnostic (ICD-10-PCS; principal; 2020-06-24 08:30)
DX: K63.5 Polyp of colon (principal); Z20.828 Contact with and (suspected) exposure to other viral communicable diseases; I10 Essential (primary) hypertension; E11.9 Type 2 diabetes mellitus without complications; Z79.4 Long term (current) use of insulin; E03.9 Hypothyroidism, unspecified; K74.5 Biliary cirrhosis, unspecified
CPT/HCPCS: 88305; 45380; U0002; J2704; J7030